=== PATIENT | female | born 1940 | race Caucasian/White ===

== ENCOUNTER 2022-04-12 15:15 | Emergency (ER) | payer OTHER ==
[2022-04-12 15:54] LABS: #Eosinphils 0.2 thou/uL (0.0-0.7); #Lymphocytes 1.5 thou/uL (1.20-3.40); #Monocytes 0.9 thou/uL (0.11-0.59); #Neutrophils 4.9 thou/uL (1.40-6.50); %Basophils 0.5 % (0.0-1.0); %Eosinophils 2.4 % (0.0-10.0); %Lymphocytes 19.7 % (21.0-51.0); %Monocytes 11.8 % (0.0-10.0); %Neutrophils 65.6 % (42.0-75.0); Hemoglobin 10.8 g/dL (12.0-16.0); Mean Corpuscular HGB CONC 32.2 g/dL (32.0-36.0); Mean Corpuscular Hemoglobin 29.1 pg (27.0-31.0); Mean Corpuscular Volume 90.4 fL (78.0-98.0); Mean Platelet Volume 8.8 fL (7.4-10.4); Platelet Count 216 thou/uL (130-400); RBC Distribution Width 12.9 % (11.5-14.5); Red Blood Cell (RBC) Count 3.72 mill/uL (4.20-5.40); White Blood Cell (WBC) Count 7.4 thou/uL (4.8-10.8)
[2022-04-12] MEDS ORDERED: Atropine Sulfate 1 mg/10 ml Syringe ONE (15:54)
[2022-04-12 16:25] LABS: ALT (SGPT) 16 U/L (8-55); AST (SGOT) 28 U/L (5-34); Albumin 4.1 g/dL (3.4-4.8); Alkaline Phosphatase 70 U/L (40-110); Anion Gap 18 mmol/L (10-20); BUN (Urea Nitrogen) 52 mg/dL (9.8-20.1); Bilirubin, Total 0.5 mg/dL (0.2-1.2); Calc. Creatinine Clearance 0 mL/min (70-130); Calcium 8.9 mg/dL (7.8-10.44); Carbon Dioxide 24 mmol/L (23-31); Chloride 98 mmol/L (98-107); Estimated GFR 19; Globulin 2.3 g/dL (2.4-3.5); Glucose 121 mg/dL (83-110); Potassium 4.1 mmol/L (3.5-5.1); Protein, Total 6.4 g/dL (5.8-8.1); Sodium 136 mmol/L (136-145)
== END 2022-04-12 17:55 | disposition short-term general hospital (02) ==
LOC: ERS 15:15
DX: R00.1 Bradycardia, unspecified (principal); I44.0 Atrioventricular block, first degree; I44.7 Left bundle-branch block, unspecified; I48.91 Unspecified atrial fibrillation; I11.0 Hypertensive heart disease with heart failure; I50.9 Heart failure, unspecified; E11.9 Type 2 diabetes mellitus without complications; E78.5 Hyperlipidemia, unspecified; Z79.01 Long term (current) use of anticoagulants; Z79.899 Other long term (current) drug therapy
CPT/HCPCS: 80053; 83880; 84484; 85025; 93005; 96374; 96375; 99285; J1610; 36415; J0461

== ENCOUNTER 2022-10-24 10:45 | Emergency (ER) | payer OTHER ==
[~2022-10-24 10:45] MED LIST: Iopamidol-370 76% 500 ML 1 ML ONE
[2022-10-24] MEDS ORDERED: Morphine 4 MG/ML VIAL ONE (11:29)
[2022-10-24] MEDS ORDERED: Ondansetron PF 4 MG/2 ML Vial ONE (11:29)
[2022-10-24 11:40] LABS: #Eosinphils 0.1 thou/uL (0.0-0.7); #Lymphocytes 1.2 thou/uL (1.20-3.40); #Monocytes 0.8 thou/uL (0.11-0.59); #Neutrophils 7.8 thou/uL (1.40-6.50); %Basophils 0.1 % (0.0-1.0); %Eosinophils 0.9 % (0.0-10.0); %Lymphocytes 12.5 % (21.0-51.0); %Monocytes 7.6 % (0.0-10.0); %Neutrophils 78.8 % (42.0-75.0); Hemoglobin 11.8 g/dL (12.0-16.0); Mean Corpuscular HGB CONC 32.7 g/dL (32.0-36.0); Mean Corpuscular Hemoglobin 29.9 pg (27.0-31.0); Mean Corpuscular Volume 91.5 fl (78.0-98.0); Platelet Count 271 10x3/uL (130-400); RBC Distribution Width 13.3 % (11.5-14.5); Red Blood Cell (RBC) Count 3.94 mill/uL (4.20-5.40); White Blood Cell (WBC) Count 9.8 10x3/uL (4.8-10.8)
[2022-10-24 12:01] LABS: ALT (SGPT) 22 U/L (8-55); AST (SGOT) 34 U/L (5-34); Albumin 4.2 g/dL (3.4-4.8); Alkaline Phosphatase 73 U/L (40-110); Anion Gap 15 mmol/L (10-20); BUN (Urea Nitrogen) 43 mg/dL (9.8-20.1); Bilirubin, Total 0.6 mg/dL (0.2-1.2); Calc. Creatinine Clearance 0 mL/min (70-130); Carbon Dioxide 26 mmol/L (23-31); Chloride 95 mmol/L (98-107); Estimated GFR 25; Globulin 2.3 g/dL (2.4-3.5); Glucose 109 mg/dL (83-110); Potassium 4.6 mmol/L (3.5-5.1); Protein, Total 6.5 g/dL (5.8-8.1); Sodium 131 mmol/L (136-145)
== END 2022-10-24 15:44 | disposition home or self-care (01) ==
LOC: ERS 10:45
DX: S09.90XA Unspecified injury of head, initial encounter (principal); M54.50 Low back pain, unspecified; I11.0 Hypertensive heart disease with heart failure; I50.9 Heart failure, unspecified; E78.5 Hyperlipidemia, unspecified; Z79.899 Other long term (current) drug therapy; W19.XXXA Unspecified fall, initial encounter
CPT/HCPCS: 36415; 70450; 71045; 72125; 74177; 80053; 84484; 85025; 93005; 96361; 96374; 96375; J2270; J2405; Q9967

== ENCOUNTER 2023-04-19 09:16 | Inpatient (IN) | payer OTHER ==
[2023-04-19 10:17] LABS: #Eosinphils 0.1 thou/uL (0.0-0.7); #Monocytes 0.7 thou/uL (0.11-0.59); #Neutrophils 3.8 thou/uL (1.40-6.50); %Basophils 0.3 % (0.0-1.0); %Eosinophils 2.2 % (0.0-10.0); %Lymphocytes 28.5 % (21.0-51.0); %Monocytes 10.3 % (0.0-10.0); %Neutrophils 58.4 % (42.0-75.0); Hematocrit 31.2 % (36.0-47.0); Hemoglobin 9.8 g/dL (12.0-16.0); Mean Corpuscular HGB CONC 31.4 g/dL (32.0-36.0); Mean Corpuscular Hemoglobin 27.9 pg (27.0-31.0); Mean Corpuscular Volume 88.9 fl (78.0-98.0); Platelet Count 193 10x3/uL (130-400); RBC Distribution Width 14.6 % (11.5-14.5); Red Blood Cell (RBC) Count 3.51 mill/uL (4.20-5.40); White Blood Cell (WBC) Count 6.5 10x3/uL (4.8-10.8)
[2023-04-19] MEDS ORDERED: Ondansetron PF 4 MG/2 ML Vial ONE ×2 (10:25→13:31)
[2023-04-19 10:45] LABS: ALT (SGPT) 14 U/L (8-55); AST (SGOT) 27 U/L (5-34); Albumin 3.6 g/dL (3.4-4.8); Alkaline Phosphatase 76 U/L (40-110); Anion Gap 14 mmol/L (10-20); BUN (Urea Nitrogen) 44 mg/dL (9.8-20.1); Bilirubin, Total 0.4 mg/dL (0.2-1.2); Calc. Creatinine Clearance 0 mL/min (70-130); Calcium 8.3 mg/dL (7.8-10.44); Carbon Dioxide 20 mmol/L (23-31); Estimated GFR 30; Glucose 87 mg/dL (83-110); Lipase 4 U/L (8-78); Potassium 4.1 mmol/L (3.5-5.1); Protein, Total 5.6 g/dL (5.8-8.1)
[2023-04-19 10:47] LABS: Chloride 106 mmol/L (98-107); Sodium 136 mmol/L (136-145)
[2023-04-19 10:49] LABS: Troponin I Less than 0.010 ng/mL (< 0.028)
[2023-04-19] MEDS ORDERED: cefTRIAXone (ROCEPHIN) 2 GM VIAL ONE (12:17)
[2023-04-19 12:33] LABS: Bilirubin Negative (Negative); Blood, Urine Negative (Negative); CAUTI Indications for Culture Alt mental st,lethar; Clarity Clear (Clear); Glucose, Urine (Dipstick) 200 mg/dL (Negative); Ketone, Urine Negative (Negative); Leukocyte 75 Leu/uL (Negative); Nitrite Negative (Negative); Protein, Urine (Dipstick) Negative (Neg-Trace); RBC/HPF 0-3 HPF (0-3); Specific Gravity, Urine 1.027 (1.002-1.036); Urobilinogen Normal mg/dL (Less than 2)
[2023-04-19 12:55] LABS: Bacteria/HPF 1+ HPF (None Seen)
[2023-04-19 12:56] LABS: Urine Culture Reflex No No
[2023-04-19] MEDS ORDERED: Azithromycin 500 MG VIAL ONE (13:31)
[2023-04-19] MEDS ORDERED: Iopamidol-370 76% 500 ML MDV (1 ML CHARGE) ONE (14:36)
[2023-04-19] MEDS: Sodium Chloride 0.9% 1,000 ML IV SCH ×2 (16:40→23:21)
[2023-04-19] MEDS: Dronedarone HCl 400 MG TAB PO SCH (18:30)
[2023-04-19 19:17] VITALS: BMI 36.3
[2023-04-19 19:52] LABS: SARS-CoV-2 NAA Rapid Test Not Detected (NotDetected)
[2023-04-19] MEDS: Temazepam 15 MG CAP PO PRN (21:31)
[2023-04-19] MEDS: Ezetimibe 10 MG TAB PO SCH (21:31)
[2023-04-19] MEDS: Acetaminophen 325 MG TAB PO PRN (21:31)
[2023-04-19] MEDS: Ondansetron PF 4 MG/2 ML Vial IVP PRN (21:32)
[2023-04-19] MEDS: clonazePAM 1 MG TAB PO PRN (22:05)
[2023-04-20] MEDS: Acetaminophen 325 MG TAB PO PRN ×3 (04:33→22:03)
[2023-04-20 04:34] LABS: #Monocytes 1.1 thou/uL (0.11-0.59); #Neutrophils 6.3 thou/uL (1.40-6.50); %Basophils 0.2 % (0.0-1.0); %Eosinophils 0.3 % (0.0-10.0); %Lymphocytes 14.3 % (21.0-51.0); %Monocytes 12.4 % (0.0-10.0); %Neutrophils 72.5 % (42.0-75.0); Hematocrit 33.6 % (36.0-47.0); Hemoglobin 10.1 g/dL (12.0-16.0); Mean Corpuscular HGB CONC 30.1 g/dL (32.0-36.0); Mean Corpuscular Hemoglobin 26.6 pg (27.0-31.0); Mean Corpuscular Volume 88.7 fl (78.0-98.0); Platelet Count 237 10x3/uL (130-400); RBC Distribution Width 14.8 % (11.5-14.5); Red Blood Cell (RBC) Count 3.79 mill/uL (4.20-5.40); White Blood Cell (WBC) Count 8.7 10x3/uL (4.8-10.8)
[2023-04-20 05:07] LABS: Anion Gap 14 mmol/L (10-20); BUN (Urea Nitrogen) 37 mg/dL (9.8-20.1); Calc. Creatinine Clearance 49 mL/min (70-130); Calcium 8.8 mg/dL (7.8-10.44); Carbon Dioxide 20 mmol/L (23-31); Cardiac Risk 3.6 (Less than 4.5); Chloride 109 mmol/L (98-107); Cholesterol 169 mg/dl (< 200 Desired); Estimated GFR 38; Glucose 98 mg/dL (83-110); HDL Cholesterol 47 mg/dL (>60 Neg Risk); Potassium 4.6 mmol/L (3.5-5.1); Sodium 138 mmol/L (136-145)
[2023-04-20 05:43] LABS: Triglycerides 169 mg/dL (Less than 150)
[2023-04-20 06:17] LABS: LDL Cholesterol, Calculated 88 mg/dL
[2023-04-20] MEDS: Clopidogrel Bisulfate 75 MG TAB PO SCH (09:38)
[2023-04-20] MEDS: Dronedarone HCl 400 MG TAB PO SCH ×2 (09:39→17:02)
[2023-04-20] MEDS: Sodium Chloride 0.9% 1,000 ML IV SCH (09:39)
[2023-04-20] MEDS ORDERED: Gabapentin 100 MG CAP PO SCH (11:00)
[2023-04-20] MEDS ORDERED: Rivaroxaban 10 MG TAB PO SCH (11:15)
[2023-04-20] MEDS: Ondansetron PF 4 MG/2 ML Vial IVP PRN (11:47)
[2023-04-20] MEDS: cefTRIAXone\\ROCEPHIN 2 GM in Sodium Chloride 0.9% 100 ML IVPB SCH (11:47)
[2023-04-20] MEDS: Azithromycin 500 MG in Sodium Chloride 0.9% 250 ML 250 ML IVPB SCH (15:23)
[2023-04-20] MEDS: Temazepam 15 MG CAP PO PRN (21:04)
[2023-04-20] MEDS: Gabapentin 100 MG CAP PO SCH (21:04)
[2023-04-20] MEDS: Ezetimibe 10 MG TAB PO SCH (21:05)
[2023-04-20] MEDS: Methocarbamol 500 MG TAB PO SCH (21:08)
[2023-04-20] MEDS: clonazePAM 1 MG TAB PO PRN (22:03)
[2023-04-21] MEDS: Acetaminophen 325 MG TAB PO PRN (03:59)
[2023-04-21 05:27] LABS: #Eosinphils 0.1 thou/uL (0.0-0.7); #Monocytes 0.8 thou/uL (0.11-0.59); #Neutrophils 6.7 thou/uL (1.40-6.50); %Basophils 0.2 % (0.0-1.0); %Eosinophils 1.6 % (0.0-10.0); %Lymphocytes 12.9 % (21.0-51.0); %Monocytes 9.2 % (0.0-10.0); %Neutrophils 75.8 % (42.0-75.0); Hematocrit 31.9 % (36.0-47.0); Hemoglobin 9.7 g/dL (12.0-16.0); Mean Corpuscular HGB CONC 30.4 g/dL (32.0-36.0); Mean Corpuscular Hemoglobin 27.6 pg (27.0-31.0); Mean Corpuscular Volume 90.9 fl (78.0-98.0); Mean Platelet Volume 10.8 fL (7.4-10.4); Platelet Count 202 10x3/uL (130-400); RBC Distribution Width 14.8 % (11.5-14.5); Red Blood Cell (RBC) Count 3.51 mill/uL (4.20-5.40); White Blood Cell (WBC) Count 8.8 10x3/uL (4.8-10.8)
[2023-04-21 05:49] LABS: Anion Gap 13 mmol/L (10-20); BUN (Urea Nitrogen) 28 mg/dL (9.8-20.1); Calc. Creatinine Clearance 58 mL/min (70-130); Calcium 8.7 mg/dL (7.8-10.44); Carbon Dioxide 20 mmol/L (23-31); Chloride 111 mmol/L (98-107); Estimated GFR 46; Glucose 96 mg/dL (83-110); Potassium 4.4 mmol/L (3.5-5.1); Sodium 140 mmol/L (136-145)
[2023-04-21] MEDS: Dronedarone HCl 400 MG TAB PO SCH ×2 (08:57→16:17)
[2023-04-21] MEDS: Rivaroxaban 10 MG TAB PO SCH (08:57)
[2023-04-21] MEDS: Gabapentin 100 MG CAP PO SCH ×2 (08:57→21:27)
[2023-04-21] MEDS: Clopidogrel Bisulfate 75 MG TAB PO SCH (08:57)
[2023-04-21] MEDS: cefTRIAXone\\ROCEPHIN 2 GM in Sodium Chloride 0.9% 100 ML IVPB SCH (10:58)
[2023-04-21] MEDS: Azithromycin 500 MG in Sodium Chloride 0.9% 250 ML 250 ML IVPB SCH (11:53)
[2023-04-21] MEDS ORDERED: Temazepam 15 MG CAP PO SCH (13:30)
[2023-04-21] MEDS ORDERED: Losartan 25 MG TAB PO SCH (15:00)
[2023-04-21] MEDS ORDERED: ALPRAZolam 0.25 MG TAB PO PRN (15:12)
[2023-04-21] MEDS ORDERED: Milk Of Magnesia 30 ML UDCUP PO PRN (20:25)
[2023-04-21] MEDS: Methocarbamol 500 MG TAB PO SCH (21:26)
[2023-04-21] MEDS: Ezetimibe 10 MG TAB PO SCH (21:27)
[2023-04-21] MEDS: Temazepam 15 MG CAP PO PRN (22:11)
[2023-04-21] MEDS: clonazePAM 1 MG TAB PO PRN (22:13)
[2023-04-22] MEDS: Acetaminophen 325 MG TAB PO PRN ×4 (04:53→21:55)
[2023-04-22 05:10] LABS: #Eosinphils 0.1 thou/uL (0.0-0.7); #Monocytes 0.9 thou/uL (0.11-0.59); #Neutrophils 5.9 thou/uL (1.40-6.50); %Basophils 0.2 % (0.0-1.0); %Eosinophils 1.7 % (0.0-10.0); %Lymphocytes 16.4 % (21.0-51.0); %Monocytes 10.5 % (0.0-10.0); %Neutrophils 70.8 % (42.0-75.0); Hematocrit 33.3 % (36.0-47.0); Hemoglobin 10.3 g/dL (12.0-16.0); Mean Corpuscular HGB CONC 30.9 g/dL (32.0-36.0); Mean Corpuscular Hemoglobin 27.2 pg (27.0-31.0); Mean Platelet Volume 10.8 fL (7.4-10.4); Platelet Count 234 10x3/uL (130-400); RBC Distribution Width 14.6 % (11.5-14.5); Red Blood Cell (RBC) Count 3.79 mill/uL (4.20-5.40); White Blood Cell (WBC) Count 8.4 10x3/uL (4.8-10.8)
[2023-04-22 05:22] LABS: Mean Corpuscular Volume 87.9 fl (78.0-98.0)
[2023-04-22 05:40] LABS: Anion Gap 11 mmol/L (10-20); BUN (Urea Nitrogen) 21 mg/dL (9.8-20.1); Calc. Creatinine Clearance 63 mL/min (70-130); Carbon Dioxide 21 mmol/L (23-31); Chloride 108 mmol/L (98-107); Potassium 4.3 mmol/L (3.5-5.1); Sodium 136 mmol/L (136-145)
[2023-04-22 05:41] LABS: Calcium 9.2 mg/dL (7.8-10.44); Estimated GFR 51; Glucose 83 mg/dL (83-110); Magnesium 1.9 mg/dL (1.6-2.6)
[2023-04-22] MEDS ORDERED: DAPAGLIFLOZIN 10 MG PO SCH ×2 (09:00)
[2023-04-22] MEDS ORDERED: Empagliflozin 25 MG TAB PO SCH (09:00)
[2023-04-22] MEDS: Dronedarone HCl 400 MG TAB PO SCH ×2 (09:20→17:56)
[2023-04-22] MEDS: Gabapentin 100 MG CAP PO SCH ×2 (09:20→21:50)
[2023-04-22] MEDS: Clopidogrel Bisulfate 75 MG TAB PO SCH (09:20)
[2023-04-22] MEDS: Losartan 25 MG TAB PO SCH (09:21)
[2023-04-22] MEDS: Rivaroxaban 10 MG TAB PO SCH (09:21)
[2023-04-22] MEDS: DAPAGLIFLOZIN 10 MG PO SCH (09:26)
[2023-04-22] MEDS: TADALAFIL 5 MG TABLET PO SCH (09:27)
[2023-04-22] MEDS: cefTRIAXone\\ROCEPHIN 2 GM in Sodium Chloride 0.9% 100 ML IVPB SCH (12:43)
[2023-04-22] MEDS: Azithromycin 500 MG in Sodium Chloride 0.9% 250 ML 250 ML IVPB SCH (14:12)
[2023-04-22] MEDS ORDERED: Temazepam 15 MG CAP PO SCH (21:00)
[2023-04-22] MEDS: Temazepam 15 MG CAP PO PRN (21:50)
[2023-04-22] MEDS: Ezetimibe 10 MG TAB PO SCH (21:51)
[2023-04-22] MEDS: Methocarbamol 500 MG TAB PO SCH (21:51)
[2023-04-22] MEDS: clonazePAM 1 MG TAB PO PRN (22:26)
[2023-04-23 09:26] LABS: #Eosinphils 0.1 thou/uL (0.0-0.7); #Monocytes 0.9 thou/uL (0.11-0.59); #Neutrophils 6.1 thou/uL (1.40-6.50); %Basophils 0.2 % (0.0-1.0); %Eosinophils 1.2 % (0.0-10.0); %Lymphocytes 13.8 % (21.0-51.0); %Monocytes 10.5 % (0.0-10.0); %Neutrophils 74.1 % (42.0-75.0); Hematocrit 33.7 % (36.0-47.0); Hemoglobin 10.3 g/dL (12.0-16.0); Mean Corpuscular HGB CONC 30.6 g/dL (32.0-36.0); Mean Corpuscular Hemoglobin 26.8 pg (27.0-31.0); Mean Corpuscular Volume 87.5 fl (78.0-98.0); Mean Platelet Volume 10.9 fL (7.4-10.4); Platelet Count 225 10x3/uL (130-400); RBC Distribution Width 14.5 % (11.5-14.5); Red Blood Cell (RBC) Count 3.85 mill/uL (4.20-5.40); White Blood Cell (WBC) Count 8.2 10x3/uL (4.8-10.8)
[2023-04-23] MEDS: Acetaminophen 325 MG TAB PO PRN ×3 (09:34→22:18)
[2023-04-23] MEDS: Gabapentin 100 MG CAP PO SCH ×2 (09:35→20:26)
[2023-04-23] MEDS: Rivaroxaban 10 MG TAB PO SCH (09:36)
[2023-04-23] MEDS: Dronedarone HCl 400 MG TAB PO SCH ×2 (09:36→17:26)
[2023-04-23] MEDS: Clopidogrel Bisulfate 75 MG TAB PO SCH (09:36)
[2023-04-23] MEDS: Losartan 25 MG TAB PO SCH (09:36)
[2023-04-23 09:40] LABS: Anion Gap 11 mmol/L (10-20); BUN (Urea Nitrogen) 18 mg/dL (9.8-20.1); Calc. Creatinine Clearance 65 mL/min (70-130); Calcium 9.1 mg/dL (7.8-10.44); Carbon Dioxide 19 mmol/L (23-31); Chloride 107 mmol/L (98-107); Estimated GFR 54; Glucose 84 mg/dL (83-110); Potassium 4.3 mmol/L (3.5-5.1); Sodium 133 mmol/L (136-145)
[2023-04-23] MEDS: DAPAGLIFLOZIN 10 MG PO SCH (09:45)
[2023-04-23] MEDS: TADALAFIL 5 MG TABLET PO SCH (09:46)
[2023-04-23] MEDS: cefTRIAXone\\ROCEPHIN 2 GM in Sodium Chloride 0.9% 100 ML IVPB SCH (13:05)
[2023-04-23] MEDS: Azithromycin 500 MG in Sodium Chloride 0.9% 250 ML 250 ML IVPB SCH (15:09)
[2023-04-23] MEDS: Methocarbamol 500 MG TAB PO SCH (20:25)
[2023-04-23] MEDS: Ezetimibe 10 MG TAB PO SCH (20:27)
[2023-04-23] MEDS: clonazePAM 1 MG TAB PO PRN (20:28)
[2023-04-23] MEDS: Temazepam 15 MG CAP PO PRN (22:18)
[2023-04-24 05:52] LABS: #Eosinphils 0.2 thou/uL (0.0-0.7); #Monocytes 0.9 thou/uL (0.11-0.59); #Neutrophils 4.4 thou/uL (1.40-6.50); %Basophils 0.3 % (0.0-1.0); %Lymphocytes 18.1 % (21.0-51.0); %Monocytes 13.6 % (0.0-10.0); %Neutrophils 64.6 % (42.0-75.0); Hematocrit 30.4 % (36.0-47.0); Hemoglobin 9.6 g/dL (12.0-16.0); Mean Corpuscular HGB CONC 31.6 g/dL (32.0-36.0); Mean Corpuscular Hemoglobin 27.1 pg (27.0-31.0); Mean Corpuscular Volume 85.9 fl (78.0-98.0); Mean Platelet Volume 10.7 fL (7.4-10.4); Platelet Count 211 10x3/uL (130-400); RBC Distribution Width 14.6 % (11.5-14.5); Red Blood Cell (RBC) Count 3.54 mill/uL (4.20-5.40); White Blood Cell (WBC) Count 6.7 10x3/uL (4.8-10.8)
[2023-04-24 06:18] LABS: Anion Gap 13 mmol/L (10-20); BUN (Urea Nitrogen) 22 mg/dL (9.8-20.1); Calc. Creatinine Clearance 60 mL/min (70-130); Carbon Dioxide 21 mmol/L (23-31); Chloride 105 mmol/L (98-107); Estimated GFR 48; Glucose 87 mg/dL (83-110); Potassium 4.2 mmol/L (3.5-5.1); Sodium 135 mmol/L (136-145)
[2023-04-24] MEDS: Acetaminophen 325 MG TAB PO PRN ×3 (06:27→20:53)
[2023-04-24] MEDS: Losartan 25 MG TAB PO SCH (10:11)
[2023-04-24] MEDS: TADALAFIL 5 MG TABLET PO SCH (10:12)
[2023-04-24] MEDS: DAPAGLIFLOZIN 10 MG PO SCH (10:13)
[2023-04-24] MEDS: Dronedarone HCl 400 MG TAB PO SCH ×2 (10:14→18:41)
[2023-04-24] MEDS: Rivaroxaban 10 MG TAB PO SCH (10:15)
[2023-04-24] MEDS: Gabapentin 100 MG CAP PO SCH ×2 (10:15→20:51)
[2023-04-24] MEDS: Clopidogrel Bisulfate 75 MG TAB PO SCH (10:16)
[2023-04-24] MEDS: cefTRIAXone\\ROCEPHIN 2 GM in Sodium Chloride 0.9% 100 ML IVPB SCH (12:00)
[2023-04-24] MEDS: Azithromycin 500 MG in Sodium Chloride 0.9% 250 ML 250 ML IVPB SCH (14:29)
[2023-04-24] MEDS: Methocarbamol 500 MG TAB PO SCH (20:51)
[2023-04-24] MEDS: Temazepam 15 MG CAP PO PRN (20:52)
[2023-04-24] MEDS: Ezetimibe 10 MG TAB PO SCH (20:53)
[2023-04-24] MEDS: clonazePAM 1 MG TAB PO PRN (21:52)
[2023-04-25] MEDS: Acetaminophen 325 MG TAB PO PRN ×3 (03:56→18:36)
[2023-04-25 06:27] LABS: #Eosinphils 0.2 thou/uL (0.0-0.7); #Neutrophils 5.4 thou/uL (1.40-6.50); %Basophils 0.3 % (0.0-1.0); %Eosinophils 2.9 % (0.0-10.0); %Lymphocytes 11.6 % (21.0-51.0); %Monocytes 13.5 % (0.0-10.0); %Neutrophils 71.2 % (42.0-75.0); Hematocrit 28.8 % (36.0-47.0); Mean Corpuscular HGB CONC 31.3 g/dL (32.0-36.0); Mean Corpuscular Hemoglobin 27.1 pg (27.0-31.0); Mean Corpuscular Volume 86.7 fl (78.0-98.0); Mean Platelet Volume 10.7 fL (7.4-10.4); Platelet Count 233 10x3/uL (130-400); RBC Distribution Width 14.5 % (11.5-14.5); Red Blood Cell (RBC) Count 3.32 mill/uL (4.20-5.40); White Blood Cell (WBC) Count 7.6 10x3/uL (4.8-10.8)
[2023-04-25 06:49] LABS: Anion Gap 16 mmol/L (10-20); BUN (Urea Nitrogen) 22 mg/dL (9.8-20.1); Calc. Creatinine Clearance 64 mL/min (70-130); Calcium 8.8 mg/dL (7.8-10.44); Carbon Dioxide 19 mmol/L (23-31); Chloride 105 mmol/L (98-107); Estimated GFR 52; Glucose 92 mg/dL (83-110); Potassium 4.3 mmol/L (3.5-5.1); Sodium 136 mmol/L (136-145)
[2023-04-25] MEDS: DAPAGLIFLOZIN 10 MG PO SCH (09:13)
[2023-04-25] MEDS: TADALAFIL 5 MG TABLET PO SCH (09:14)
[2023-04-25] MEDS: Gabapentin 100 MG CAP PO SCH ×2 (09:17→20:58)
[2023-04-25] MEDS: Clopidogrel Bisulfate 75 MG TAB PO SCH (09:19)
[2023-04-25] MEDS: Dronedarone HCl 400 MG TAB PO SCH ×2 (09:19→18:21)
[2023-04-25] MEDS: Losartan 25 MG TAB PO SCH (09:19)
[2023-04-25] MEDS: Rivaroxaban 10 MG TAB PO SCH (09:19)
[2023-04-25] MEDS: cefTRIAXone\\ROCEPHIN 2 GM in Sodium Chloride 0.9% 100 ML IVPB SCH (12:38)
[2023-04-25] MEDS: Azithromycin 500 MG in Sodium Chloride 0.9% 250 ML 250 ML IVPB SCH (13:55)
[2023-04-25] MEDS ORDERED: Temazepam 15 MG CAP PO PRN (19:14)
[2023-04-25] MEDS: Methocarbamol 500 MG TAB PO SCH (20:57)
[2023-04-25] MEDS: Ezetimibe 10 MG TAB PO SCH (20:57)
[2023-04-25] MEDS: clonazePAM 1 MG TAB PO PRN (21:51)
[2023-04-26] MEDS: Acetaminophen 325 MG TAB PO PRN ×2 (04:11→11:25)
[2023-04-26] MEDS: Dronedarone HCl 400 MG TAB PO SCH (08:29)
[2023-04-26] MEDS: Rivaroxaban 10 MG TAB PO SCH (08:29)
[2023-04-26] MEDS: Clopidogrel Bisulfate 75 MG TAB PO SCH (08:29)
[2023-04-26] MEDS: Losartan 25 MG TAB PO SCH (08:30)
[2023-04-26] MEDS: Gabapentin 100 MG CAP PO SCH (08:31)
[2023-04-26] MEDS: TADALAFIL 5 MG TABLET PO SCH (08:32)
[2023-04-26] MEDS: DAPAGLIFLOZIN 10 MG PO SCH (08:33)
[2023-04-26] MEDS ORDERED: Amlodipine 5 MG TAB PO SCH (09:00)
[2023-04-26] MEDS ORDERED: Azithromycin 250 MG TAB PO SCH (09:00)
[2023-04-26] MEDS ORDERED: Azithromycin 200 MG/5 ML Oral Suspension PO SCH (10:17)
[2023-04-26] MEDS ORDERED: cefTRIAXone\\ROCEPHIN 2 GM in Sodium Chloride 0.9% 100 ML IVPB SCH (10:30)
[2023-04-26 12:19] VITALS: BP 127/54; TEMP 97.6
== END 2023-04-26 13:33 | DRG 312 ==
LOC: ERS 09:16 → ERHOLD 12:54 → 2SE 16:04 → OBSVTOIN 04-20 11:09
PROVIDERS: ADMIT Family Medicine; ATTEND Internal Medicine
DX: R55 Syncope and collapse (principal); J18.9 Pneumonia, unspecified organism; N17.9 Acute kidney failure, unspecified; I13.0 Hypertensive heart and chronic kidney disease with heart failure and stage 1 through stage 4 chronic kidney disease, or unspecified chronic kidney disease; I50.32 Chronic diastolic (congestive) heart failure; Z20.822 Contact with and (suspected) exposure to COVID-19; I27.20 Pulmonary hypertension, unspecified; I65.21 Occlusion and stenosis of right carotid artery; N18.30 Chronic kidney disease, stage 3 unspecified; I48.0 Paroxysmal atrial fibrillation; I08.1 Rheumatic disorders of both mitral and tricuspid valves; G47.00 Insomnia, unspecified; G89.29 Other chronic pain; I49.5 Sick sinus syndrome; I25.10 Atherosclerotic heart disease of native coronary artery without angina pectoris; M54.9 Dorsalgia, unspecified; K21.9 Gastro-esophageal reflux disease without esophagitis; E78.5 Hyperlipidemia, unspecified; D64.9 Anemia, unspecified; R09.02 Hypoxemia; Z79.899 Other long term (current) drug therapy; Z79.02 Long term (current) use of antithrombotics/antiplatelets; Z88.8 Allergy status to other drugs, medicaments and biological substances; Z79.01 Long term (current) use of anticoagulants; Z95.0 Presence of cardiac pacemaker; Z95.2 Presence of prosthetic heart valve; Z90.49 Acquired absence of other specified parts of digestive tract; Z90.710 Acquired absence of both cervix and uterus; Z98.51 Tubal ligation status; Z95.5 Presence of coronary angioplasty implant and graft
CPT/HCPCS: 36415; 70450; 71275; 74174; 80048; 80053; 80061; 81001; 83605; 83690; 83735; 83880; 84484; 85025; 87040; 93005; 93306; 93880; 96361; 96365; 96367; 96375; 96376; G0378; J0456; J0696; J2405; J3490; J7050; Q9967; U0002

== ENCOUNTER 2024-02-20 14:27 | Inpatient (IN) | payer OTHER ==
[2024-02-20 15:10] LABS: #Basophils Less than 0.03 10x3/uL (0.0-0.2); %Basophils 0.3 % (0.0-1.0); %Eosinophils 0.4 % (0.0-10.0); %Lymphocytes 14.7 % (21.0-51.0); %Monocytes 8.1 % (0.0-10.0); %Neutrophils 76.1 % (42.0-75.0); Hematocrit 39.4 % (36.0-47.0); Hemoglobin 11.8 g/dL (12.0-16.0); Mean Corpuscular HGB CONC 29.9 g/dL (32.0-36.0); Mean Corpuscular Hemoglobin 25.2 pg (27.0-31.0); Mean Platelet Volume 10.6 fL (7.4-10.4); Platelet Count 234 10x3/uL (130-400); RBC Distribution Width 15.7 % (11.5-14.5); Red Blood Cell (RBC) Count 4.69 mill/uL (4.20-5.40)
[2024-02-20 15:30] LABS: ALT (SGPT) 12 U/L (8-55); AST (SGOT) 26 U/L (5-34); Albumin 4.1 g/dL (3.4-4.8); Alkaline Phosphatase 85 U/L (40-110); Anion Gap 15 mmol/L (10-20); BUN (Urea Nitrogen) 28 mg/dL (9.8-20.1); Bilirubin, Total 0.5 mg/dL (0.2-1.2); Calc. Creatinine Clearance 0 mL/min (70-130); Calcium 9.5 mg/dL (7.8-10.44); Carbon Dioxide 17 mmol/L (23-31); Chloride 107 mmol/L (98-107); Estimated GFR 37; Globulin 3.2 g/dL (2.4-3.5); Glucose 104 mg/dL (83-110); Lipase 13 U/L (8-78); Potassium 4.3 mmol/L (3.5-5.1); Protein, Total 7.3 g/dL (5.8-8.1); Sodium 135 mmol/L (136-145)
[2024-02-20] MEDS ORDERED: Iopamidol-370 76% 500 ML MDV (1 ML CHARGE) ONE (15:42)
[2024-02-20 16:07] LABS: Troponin I Less than 0.010 ng/mL (< 0.028)
[2024-02-20] MEDS ORDERED: Morphine 4 MG/ML VIAL ONE (16:56)
[2024-02-20] MEDS ORDERED: Ondansetron PF 4 MG/2 ML Vial ONE (16:56)
[2024-02-20] MEDS ORDERED: Benzocaine 20% Spray 60 ML CAN ONE (17:54)
[2024-02-20] MEDS ORDERED: Lidocaine 2% PF 100 mg/5 ml Syringe ONE (18:03)
[2024-02-20] MEDS ORDERED: Lidocaine 4% Topical Sol 50 ML BOT ONE (18:04)
[2024-02-20] MEDS ORDERED: Lidocaine 2% 6 ML (Jelly) SYR ONE (18:04)
[2024-02-20] MEDS ORDERED: Ondansetron ODT 4 MG TAB PO PRN (18:10)
[2024-02-20] MEDS ORDERED: Acetaminophen 650 MG Suppository PR PRN (18:10)
[2024-02-20] MEDS ORDERED: Acetaminophen 325 MG TAB PO PRN (18:10)
[2024-02-20] MEDS ORDERED: Midazolam HCl 2 mg/2 ml Vial ONE (18:19)
[2024-02-20] MEDS: Dextrose 5%-Lactated Ringers 1,000 ML IV SCH (20:14)
[2024-02-20] MEDS ORDERED: Ezetimibe 10 MG TAB PO SCH (21:00)
[2024-02-20] MEDS ORDERED: Famotidine 20 MG TAB PO SCH (21:00)
[2024-02-20] MEDS ORDERED: Senokot S 8.6-50 MG TAB PO PRN (21:15)
[2024-02-20] MEDS: Losartan 25 MG TAB PO SCH (21:44)
[2024-02-20] MEDS: Dronedarone HCl 400 MG TAB PO SCH (21:44)
[2024-02-20] MEDS: Temazepam 15 MG CAP PO PRN (21:44)
[2024-02-20] MEDS: Famotidine/PF 20 mg/2ml Vial SLOW IVP SCH (21:44)
[2024-02-21] MEDS: Ondansetron PF 4 MG/2 ML Vial IVP PRN (02:21)
[2024-02-21] MEDS: Morphine 4 MG/ML VIAL SLOW IVP PRN (02:21)
[2024-02-21] MEDS ORDERED: MD-Gastroview 120 ML BOT ONE (06:30)
[2024-02-21 07:02] LABS: Anion Gap 15 mmol/L (10-20); BUN (Urea Nitrogen) 21 mg/dL (9.8-20.1); Calc. Creatinine Clearance 64 mL/min (70-130); Carbon Dioxide 18 mmol/L (23-31); Chloride 104 mmol/L (98-107); Estimated GFR 59; Glucose 123 mg/dL (83-110); Potassium 4.3 mmol/L (3.5-5.1); Sodium 133 mmol/L (136-145)
[2024-02-21 07:33] LABS: #Basophils Less than 0.03 10x3/uL (0.0-0.2); #Eosinphils Less than 0.03 10x3/uL (0.0-0.7); %Basophils 0.1 % (0.0-1.0); %Eosinophils 0.1 % (0.0-10.0); %Lymphocytes 11.3 % (21.0-51.0); %Monocytes 8.3 % (0.0-10.0); Hematocrit 39.2 % (36.0-47.0); Hemoglobin 11.9 g/dL (12.0-16.0); Mean Corpuscular HGB CONC 30.4 g/dL (32.0-36.0); Mean Corpuscular Hemoglobin 25.5 pg (27.0-31.0); Mean Corpuscular Volume 84.1 fL (78.0-98.0); Mean Platelet Volume 10.9 fL (7.4-10.4); Platelet Count 249 10x3/uL (130-400); RBC Distribution Width 15.8 % (11.5-14.5); Red Blood Cell (RBC) Count 4.66 mill/uL (4.20-5.40)
[2024-02-21] MEDS ORDERED: Rivaroxaban 10 MG TAB PO SCH (09:00)
[2024-02-21] MEDS ORDERED: TADALAFIL 5 MG PO SCH (09:00)
[2024-02-21] MEDS ORDERED: Empagliflozin 25 MG TAB PO SCH (09:00)
[2024-02-21] MEDS ORDERED: Alogliptin 25 MG TAB PO SCH (09:00)
[2024-02-21] MEDS ORDERED: Furosemide 20 MG TAB PO SCH (09:00)
[2024-02-21] MEDS ORDERED: Milk Of Magnesia 30 ML UDCUP PO PRN (09:07)
[2024-02-21] MEDS ORDERED: Nitroglycerin 4.9 GM Bottle SL PRN ×2 (09:07→09:11)
[2024-02-21] MEDS ORDERED: fentaNYL PF 100 MCG/2 ML SYRINGE ONE ×3 (16:21→19:25)
[2024-02-21] MEDS ORDERED: PROPOFOL 20 ML ONE (16:21)
[2024-02-21] MEDS ORDERED: Lidocaine 2% PF 5 ML VIAL ONE ×2 (16:21→17:35)
[2024-02-21] MEDS ORDERED: Rocuronium Bromide 10 MG/ML (10ML VIAL) ONE (16:22)
[2024-02-21] MEDS ORDERED: Phenylephrine 10 MG/ML VIAL ONE (16:23)
[2024-02-21] MEDS ORDERED: Sodium Chloride 0.9% 250 ML 750 ML ONE (16:23)
[2024-02-21] MEDS ORDERED: EPINEPHrine 1 MG/ML VIAL ONE (16:26)
[2024-02-21] MEDS ORDERED: Bupivacaine PF 0.5% 30 ML VIAL ONE (16:26)
[2024-02-21] MEDS ORDERED: cefOXitin 2 GM VIAL ONE (16:58)
[2024-02-21] MEDS ORDERED: OMEPRAZOLE 20 MG PO SCH (17:00)
[2024-02-21] MEDS ORDERED: Pantoprazole DR 40 MG TAB PO SCH (17:00)
[2024-02-21] MEDS ORDERED: Midazolam HCl 2 mg/2 ml Vial ONE (17:05)
[2024-02-21] MEDS ORDERED: Etomidate 40 MG (20 mL) VIAL ONE (17:05)
[2024-02-21] MEDS ORDERED: NOREPINEPHRINE 8 MG/250 ML-D5W 250 ML ONE (17:11)
[2024-02-21] MEDS ORDERED: Dexamethasone 20 MG/5 ML VIAL ONE (17:27)
[2024-02-21] MEDS ORDERED: Vasopressin 20 UNITS/ML VIAL ONE (17:33)
[2024-02-21] MEDS ORDERED: SUGAMMADEX SODIUM 200 MG/2 ML VIAL ONE (18:49)
[2024-02-21] MEDS ORDERED: diphenhydrAMINE 25 MG CAP PO PRN (18:52)
[2024-02-21] MEDS ORDERED: diphenhydrAMINE 50 MG/ML VIAL IM PRN (18:52)
[2024-02-21] MEDS ORDERED: Ondansetron HCl/PF 4 MG/2 ML Vial IVP PRN (18:52)
[2024-02-21] MEDS ORDERED: Promethazine HCl 25 MG/ML VIAL IM PRN ×2 (18:52)
[2024-02-21] MEDS ORDERED: diphenhydrAMINE 50 MG/ML VIAL IVP PRN (18:52)
[2024-02-21] MEDS ORDERED: Naloxone HCl 0.4 mg/ml Vial IV PRN (18:52)
[2024-02-21] MEDS ORDERED: Communication Order-Pharmacy FS SCH (19:00)
[2024-02-21] MEDS ORDERED: Promethazine HCl 25 MG/ML VIAL ONE (19:08)
[2024-02-21] MEDS ORDERED: fentaNYL 50 mcg/mL 1 mL Vial ONE (19:16)
[2024-02-21] MEDS ORDERED: Tadalafil [Tadalafil] 5 MG Tablet PO SCH (19:30)
[2024-02-21] MEDS ORDERED: clonazePAM 0.5 MG TAB PO SCH (21:00)
[2024-02-21] MEDS ORDERED: Gabapentin 100 MG CAP PO SCH (21:00)
[2024-02-21] MEDS ORDERED: Gabapentin 300 MG CAP PO SCH (21:00)
[2024-02-21] MEDS: NS 0.9% w/ 20 MEQ KCL 1,000 ML/1,000 ML BAG IV SCH (22:28)
[2024-02-21] MEDS: Ketorolac Tromethamine 30 MG (1 mL) VIAL IVP PRN (22:30)
[2024-02-21] MEDS: Enoxaparin 40 MG (0.4 mL) SYRINGE SC SCH (22:30)
[2024-02-22 06:59] LABS: #Basophils Less than 0.03 10x3/uL (0.0-0.2); #Eosinphils Less than 0.03 10x3/uL (0.0-0.7); %Basophils 0.1 % (0.0-1.0); %Lymphocytes 6.6 % (21.0-51.0); %Monocytes 11.2 % (0.0-10.0); %Neutrophils 81.9 % (42.0-75.0); Hematocrit 39.2 % (36.0-47.0); Hemoglobin 11.9 g/dL (12.0-16.0); Mean Corpuscular HGB CONC 30.4 g/dL (32.0-36.0); Mean Corpuscular Hemoglobin 25.9 pg (27.0-31.0); Mean Corpuscular Volume 85.4 fL (78.0-98.0); Platelet Count 256 10x3/uL (130-400); RBC Distribution Width 16.2 % (11.5-14.5); Red Blood Cell (RBC) Count 4.59 mill/uL (4.20-5.40)
[2024-02-22 07:53] LABS: ALT (SGPT) 11 U/L (8-55); AST (SGOT) 25 U/L (5-34); Alkaline Phosphatase 60 U/L (40-110); Anion Gap 13 mmol/L (10-20); BUN (Urea Nitrogen) 23 mg/dL (9.8-20.1); Bilirubin, Total 0.5 mg/dL (0.2-1.2); Calc. Creatinine Clearance 54 mL/min (70-130); Calcium 8.6 mg/dL (7.8-10.44); Carbon Dioxide 21 mmol/L (23-31); Chloride 111 mmol/L (98-107); Estimated GFR 49; Globulin 2.9 g/dL (2.4-3.5); Glucose 127 mg/dL (83-110); Potassium 4.2 mmol/L (3.5-5.1); Protein, Total 5.9 g/dL (5.8-8.1); Sodium 141 mmol/L (136-145)
[2024-02-22] MEDS ORDERED: Clopidogrel Bisulfate 75 MG TAB PO SCH (09:00)
[2024-02-22] MEDS: Pantoprazole 40 MG VIAL IVP SCH (10:03)
[2024-02-22] MEDS ORDERED: Benzocaine/Menthol 1 LOZ LOZ PO PRN (11:31)
[2024-02-22] MEDS: Lactated Ringer's 1,000 ML IV SCH (17:09)
[2024-02-23] MEDS: Amlodipine 10 MG TAB PO SCH (08:42)
[2024-02-23 10:45] LABS: #Basophils Less than 0.03 10x3/uL (0.0-0.2); #Eosinphils Less than 0.03 10x3/uL (0.0-0.7); %Basophils 0.1 % (0.0-1.0); %Eosinophils 0.2 % (0.0-10.0); %Lymphocytes 9.3 % (21.0-51.0); %Monocytes 9.6 % (0.0-10.0); %Neutrophils 79.5 % (42.0-75.0); Hematocrit 37.8 % (36.0-47.0); Hemoglobin 11.4 g/dL (12.0-16.0); Mean Corpuscular HGB CONC 30.2 g/dL (32.0-36.0); Mean Corpuscular Hemoglobin 26.1 pg (27.0-31.0); Mean Corpuscular Volume 86.7 fL (78.0-98.0); Mean Platelet Volume 10.7 fL (7.4-10.4); Platelet Count 220 10x3/uL (130-400); RBC Distribution Width 16.4 % (11.5-14.5); Red Blood Cell (RBC) Count 4.36 mill/uL (4.20-5.40)
[2024-02-23] MEDS ORDERED: Lactated Ringer's 1,000 ML IV SCH (11:00)
[2024-02-23 11:12] LABS: Anion Gap 18 mmol/L (10-20); BUN (Urea Nitrogen) 30 mg/dL (9.8-20.1); Calc. Creatinine Clearance 63 mL/min (70-130); Carbon Dioxide 19 mmol/L (23-31); Chloride 110 mmol/L (98-107); Potassium 4.4 mmol/L (3.5-5.1); Sodium 143 mmol/L (136-145)
[2024-02-23 11:13] LABS: Calcium 9.4 mg/dL (7.8-10.44); Estimated GFR 58; Glucose 95 mg/dL (83-110)
[2024-02-23] MEDS: Sodium Chloride 0.9% 1,000 ML IV SCH (14:25)
[2024-02-23] MEDS: Acetaminophen 500 MG TAB PO SCH (14:25)
[2024-02-23] MEDS: Furosemide 40 MG (4 mL) VIAL SLOW IVP SCH (14:26)
[2024-02-23] MEDS: FENTANYL 500 MCG/10 ML VIAL 2,000 MCG in Sodium Chloride 0.9% 60 ML IV PRN (18:28)
[2024-02-24 06:34] LABS: #Basophils Less than 0.03 10x3/uL (0.0-0.2); %Basophils 0.2 % (0.0-1.0); %Eosinophils 0.4 % (0.0-10.0); %Monocytes 9.6 % (0.0-10.0); %Neutrophils 80.2 % (42.0-75.0); Hemoglobin 10.5 g/dL (12.0-16.0); Mean Corpuscular Hemoglobin 25.3 pg (27.0-31.0); Mean Corpuscular Volume 84.3 fL (78.0-98.0); Mean Platelet Volume 10.7 fL (7.4-10.4); Platelet Count 213 10x3/uL (130-400); RBC Distribution Width 16.5 % (11.5-14.5); Red Blood Cell (RBC) Count 4.15 mill/uL (4.20-5.40)
[2024-02-24 07:28] LABS: Anion Gap 19 mmol/L (10-20); BUN (Urea Nitrogen) 32 mg/dL (9.8-20.1); Calc. Creatinine Clearance 70 mL/min (70-130); Calcium 9.3 mg/dL (7.8-10.44); Carbon Dioxide 21 mmol/L (23-31); Chloride 109 mmol/L (98-107); Estimated GFR 66; Glucose 89 mg/dL (83-110); Sodium 145 mmol/L (136-145)
[2024-02-24] MEDS: Amlodipine 10 MG TAB PO SCH (09:14)
[2024-02-24 09:43] VITALS: BMI 35.2
[2024-02-24] MEDS: Furosemide 40 MG (4 mL) VIAL SLOW IVP SCH (10:07)
[2024-02-24] MEDS: Tadalafil [Tadalafil] 5 MG Tablet PO SCH (22:46)
[2024-02-25] MEDS: Labetalol HCl 100 MG/20 ML VIAL SLOW IVP PRN (04:56)
[2024-02-25 05:01] LABS: #Basophils Less than 0.03 10x3/uL (0.0-0.2); %Basophils 0.1 % (0.0-1.0); %Eosinophils 0.7 % (0.0-10.0); %Lymphocytes 13.1 % (21.0-51.0); %Monocytes 11.2 % (0.0-10.0); %Neutrophils 74.1 % (42.0-75.0); Hematocrit 34.9 % (36.0-47.0); Hemoglobin 10.6 g/dL (12.0-16.0); Mean Corpuscular HGB CONC 30.4 g/dL (32.0-36.0); Mean Corpuscular Hemoglobin 25.9 pg (27.0-31.0); Mean Corpuscular Volume 85.1 fL (78.0-98.0); Mean Platelet Volume 10.4 fL (7.4-10.4); Platelet Count 222 10x3/uL (130-400); RBC Distribution Width 16.3 % (11.5-14.5)
[2024-02-25 05:19] LABS: Anion Gap 16 mmol/L (10-20); BUN (Urea Nitrogen) 30 mg/dL (9.8-20.1); Calc. Creatinine Clearance 71 mL/min (70-130); Calcium 9.4 mg/dL (7.8-10.44); Carbon Dioxide 25 mmol/L (23-31); Chloride 108 mmol/L (98-107); Estimated GFR 67; Glucose 93 mg/dL (83-110); Potassium 3.5 mmol/L (3.5-5.1); Sodium 145 mmol/L (136-145)
[2024-02-25] MEDS ORDERED: Acetaminophen 325 MG TAB PO SCH (08:30)
[2024-02-25] MEDS: Ibuprofen 600 MG TAB PO SCH (09:22)
[2024-02-25] MEDS: Furosemide 40 MG (4 mL) VIAL SLOW IVP SCH (13:19)
[2024-02-25] MEDS: Ondansetron PF 4 MG/2 ML Vial IVP PRN (23:50)
[2024-02-26] MEDS: Furosemide 40 MG (4 mL) VIAL SLOW IVP SCH (15:21)
[2024-02-26] MEDS: Amoxicillin/Potassium Clav 875 MG TAB PO SCH (22:10)
[2024-02-27 08:43] LABS: #Basophils Less than 0.03 10x3/uL (0.0-0.2); %Basophils 0.3 % (0.0-1.0); %Eosinophils 1.3 % (0.0-10.0); %Lymphocytes 19.6 % (21.0-51.0); %Monocytes 9.3 % (0.0-10.0); %Neutrophils 68.2 % (42.0-75.0); Hematocrit 37.6 % (36.0-47.0); Hemoglobin 11.8 g/dL (12.0-16.0); Mean Corpuscular HGB CONC 31.4 g/dL (32.0-36.0); Mean Corpuscular Hemoglobin 25.8 pg (27.0-31.0); Mean Corpuscular Volume 82.3 fL (78.0-98.0); Mean Platelet Volume 10.9 fL (7.4-10.4); Platelet Count 298 10x3/uL (130-400); RBC Distribution Width 15.9 % (11.5-14.5); Red Blood Cell (RBC) Count 4.57 mill/uL (4.20-5.40)
[2024-02-27 08:57] LABS: Anion Gap 16 mmol/L (10-20); BUN (Urea Nitrogen) 29 mg/dL (9.8-20.1); Calc. Creatinine Clearance 68 mL/min (70-130); Calcium 9.1 mg/dL (7.8-10.44); Carbon Dioxide 30 mmol/L (23-31); Chloride 103 mmol/L (98-107); Estimated GFR 63; Glucose 113 mg/dL (83-110); Potassium 2.7 mmol/L (3.5-5.1); Sodium 146 mmol/L (136-145)
[2024-02-27] MEDS: Potassium Chloride 20 MEQ TAB PO SCH ×3 (09:20→18:22)
[2024-02-27] MEDS: Isosorbide Mononitrate 30 MG ER.TAB PO SCH (09:39)
[2024-02-27] MEDS ORDERED: Potassium Chloride 20 MEQ in Premix 1 BAG IVPB SCH (16:45)
[2024-02-27 17:42] LABS: Anion Gap 18 mmol/L (10-20); BUN (Urea Nitrogen) 30 mg/dL (9.8-20.1); Calc. Creatinine Clearance 60 mL/min (70-130); Calcium 9.4 mg/dL (7.8-10.44); Carbon Dioxide 25 mmol/L (23-31); Chloride 103 mmol/L (98-107); Estimated GFR 55; Glucose 130 mg/dL (83-110); Magnesium 1.7 mg/dL (1.6-2.6); Phosphorus 2.5 mg/dL (2.3-4.7); Potassium 3.3 mmol/L (3.5-5.1); Sodium 143 mmol/L (136-145)
[2024-02-28 05:04] LABS: #Basophils Less than 0.03 10x3/uL (0.0-0.2); %Basophils 0.3 % (0.0-1.0); %Eosinophils 1.7 % (0.0-10.0); %Lymphocytes 31.6 % (21.0-51.0); %Monocytes 9.4 % (0.0-10.0); %Neutrophils 55.4 % (42.0-75.0); Hematocrit 38.6 % (36.0-47.0); Hemoglobin 12.2 g/dL (12.0-16.0); Mean Corpuscular HGB CONC 31.6 g/dL (32.0-36.0); Mean Corpuscular Hemoglobin 25.2 pg (27.0-31.0); Mean Corpuscular Volume 79.8 fL (78.0-98.0); Mean Platelet Volume 10.4 fL (7.4-10.4); Platelet Count 357 10x3/uL (130-400); RBC Distribution Width 15.9 % (11.5-14.5); Red Blood Cell (RBC) Count 4.84 mill/uL (4.20-5.40)
[2024-02-28 05:23] LABS: Anion Gap 20 mmol/L (10-20); BUN (Urea Nitrogen) 30 mg/dL (9.8-20.1); Calc. Creatinine Clearance 61 mL/min (70-130); Calcium 9.5 mg/dL (7.8-10.44); Carbon Dioxide 25 mmol/L (23-31); Chloride 101 mmol/L (98-107); Estimated GFR 56; Glucose 121 mg/dL (83-110); Magnesium 1.8 mg/dL (1.6-2.6); Potassium 3.7 mmol/L (3.5-5.1); Sodium 142 mmol/L (136-145)
[2024-02-28 05:27] LABS: Phosphorus 2.9 mg/dL (2.3-4.7)
[2024-02-28] MEDS ORDERED: Isosorbide Mononitrate 30 MG ER.TAB PO SCH (09:00)
[2024-02-28] MEDS: Famotidine 20 MG TAB PO SCH (09:05)
[2024-02-28] MEDS: Polyethylene Glycol 3350 17 GM Packet PO SCH (09:08)
[2024-02-28] MEDS: Senokot S 8.6-50 MG TAB PO SCH (09:09)
[2024-02-28 12:55] LABS: Actual Bicarbonate (HCO3a) 23.5 mEq/L (22-28); Base Excess (BEa) 1.1 mEq/L (-2.0 to +3.0); CO2 Tension 30.3 mmHg (35.0-45.0); Calcium, Ionized (arterial) 1.17 mmol/L (1.12-1.30); Carboxyhemoglobin (COHb) 0.7 gm% (0.0-3.0); Hematocrit-ABG 36 % (36.0-47.0); Hemoglobin (Hb) 12.3 g/dL (12.0-16.0); O2 Tension (PaO2), arterial 326.9 mmHg (> 60.0); Potassium - ABG Lab 4.05 mmol/L (3.70-5.30); Puncture Site Arterial Line; pH, Arterial 7.507 (7.35-7.45)
[2024-02-29 05:48] VITALS: TEMP 97.7
[2024-02-29 06:39] LABS: #Basophils Less than 0.03 10x3/uL (0.0-0.2); %Basophils 0.3 % (0.0-1.0); %Eosinophils 1.5 % (0.0-10.0); %Lymphocytes 20.7 % (21.0-51.0); %Monocytes 10.1 % (0.0-10.0); %Neutrophils 66.2 % (42.0-75.0); Hematocrit 35.8 % (36.0-47.0); Hemoglobin 10.9 g/dL (12.0-16.0); Mean Corpuscular HGB CONC 30.4 g/dL (32.0-36.0); Mean Corpuscular Hemoglobin 24.6 pg (27.0-31.0); Mean Corpuscular Volume 80.8 fL (78.0-98.0); Platelet Count 328 10x3/uL (130-400); RBC Distribution Width 15.9 % (11.5-14.5); Red Blood Cell (RBC) Count 4.43 mill/uL (4.20-5.40)
[2024-02-29 07:03] LABS: Anion Gap 17 mmol/L (10-20); BUN (Urea Nitrogen) 24 mg/dL (9.8-20.1); Calc. Creatinine Clearance 60 mL/min (70-130); Calcium 9.1 mg/dL (7.8-10.44); Carbon Dioxide 24 mmol/L (23-31); Chloride 105 mmol/L (98-107); Estimated GFR 55; Glucose 93 mg/dL (83-110); Potassium 3.5 mmol/L (3.5-5.1); Sodium 142 mmol/L (136-145)
[2024-02-29 12:10] VITALS: BP 123/70
== END 2024-02-29 16:20 | disposition home or self-care (01) | DRG 335 ==
LOC: ERS 14:27 → OBSVTOIN 18:39 → T4-A 18:39 → INTOOBSV 18:39 → OBSVTOIN 02-21 17:04 → SURG B 02-21 20:36
PROVIDERS: ADMIT Student in an Organized Health Care Education/Training Program; ATTEND Internal Medicine
PROC: 0DN80ZZ Release Small Intestine, Open Approach (ICD-10-PCS; principal; 2024-02-21)
PROC: 0DJ00ZZ Inspection of Upper Intestinal Tract, Open Approach (ICD-10-PCS; 2024-02-21)
PROC: 0D9670Z Drainage of Stomach with Drainage Device, Via Natural or Artificial Opening (ICD-10-PCS; 2024-02-21)
PROC: 3E0G76Z Introduction of Nutritional Substance into Upper GI, Via Natural or Artificial Opening (ICD-10-PCS; 2024-02-21)
PROC: 4A033R1 Measurement of Arterial Saturation, Peripheral, Percutaneous Approach (ICD-10-PCS; 2024-02-21)
PROC: 3E033XZ Introduction of Vasopressor into Peripheral Vein, Percutaneous Approach (ICD-10-PCS; 2024-02-21)
DX: K56.609 Unspecified intestinal obstruction, unspecified as to partial versus complete obstruction (principal); I50.33 Acute on chronic diastolic (congestive) heart failure; I13.0 Hypertensive heart and chronic kidney disease with heart failure and stage 1 through stage 4 chronic kidney disease, or unspecified chronic kidney disease; M35.89 Other specified systemic involvement of connective tissue; R18.8 Other ascites; E87.6 Hypokalemia; N18.30 Chronic kidney disease, stage 3 unspecified; I48.91 Unspecified atrial fibrillation; I49.5 Sick sinus syndrome; I25.10 Atherosclerotic heart disease of native coronary artery without angina pectoris; I27.20 Pulmonary hypertension, unspecified; I25.2 Old myocardial infarction; Z90.710 Acquired absence of both cervix and uterus; Z90.49 Acquired absence of other specified parts of digestive tract; Z98.51 Tubal ligation status; Z98.890 Other specified postprocedural states; Z88.8 Allergy status to other drugs, medicaments and biological substances; Z79.899 Other long term (current) drug therapy; Z95.0 Presence of cardiac pacemaker
CPT/HCPCS: 36415; 36416; 43752; 71045; 74018; 74019; 74177; 74250; 80048; 80053; 82805; 83690; 83735; 83880; 84100; 84484; 85025; 93005; 93010; 96374; 96375; 96376; A4314; C1776; C9113; G0378; J0171; J0665; J0694; J1100; J1650; J1885; J1940; J2001; J2250; J2270; J2371; J2405; J2550; J2704; J3010; J3480; J3490; J7050; J7120; Q9963; Q9967; S0028

== ENCOUNTER 2025-03-27 14:41 | Inpatient (IN) | payer OTHER ==
[2025-03-27 18:56] VITALS: BMI 38.6
[2025-03-27] MEDS ORDERED: Albuterol 200 PUFF (6.7GM INHALER) INH PRN (20:38)
[2025-03-27] MEDS ORDERED: Pantoprazole 40 MG DR.TAB PO PRN (20:38)
[2025-03-27] MEDS ORDERED: Calcium Carbonate 500 MG ChewTAB PO PRN (20:40)
[2025-03-27] MEDS ORDERED: Ondansetron PF 4 MG/2 ML Vial IVP PRN (20:40)
[2025-03-27] MEDS: Gabapentin 300 MG CAP PO SCH (22:02)
[2025-03-27] MEDS: Losartan 25 MG TAB PO SCH (22:02)
[2025-03-27] MEDS: Ezetimibe 10 MG TAB PO SCH (22:02)
[2025-03-27] MEDS: Famotidine 20 MG TAB PO SCH (22:02)
[2025-03-27] MEDS: Cefdinir 300 MG CAP PO SCH (22:03)
[2025-03-27] MEDS: Methocarbamol 500 MG TAB PO SCH (22:03)
[2025-03-27] MEDS: clonazePAM 1 MG TAB PO SCH (22:04)
[2025-03-27] MEDS: Magnesium Oxide 400 MG TAB PO SCH (22:05)
[2025-03-28 04:57] LABS: #Basophils Less than 0.03 10x3/uL (0.0-0.2); #Eosinophils 0.06 10x3/uL (0.0-0.7); #Monocytes 0.57 10x3/uL (0.11-0.59); #Neutrophils 2.17 10x3/uL (1.40-6.50); %Basophils 0.6 % (0.0-1.0); %Eosinophils 1.7 % (0.0-10.0); %Lymphocytes 16.6 % (21.0-51.0); %Monocytes 16.6 % (0.0-10.0); %Neutrophils 63.0 % (42.0-75.0); Hematocrit 28.9 % (36.0-47.0); Hemoglobin 9.0 g/dL (12.0-16.0); Mean Corpuscular Hemoglobin 27.7 pg (27.0-31.0); Mean Corpuscular Volume 88.9 fL (78.0-98.0); Platelet Count 98 10x3/uL (130-400); Red Blood Cell (RBC) Count 3.25 mill/uL (4.20-5.40); White Blood Cell (WBC) Count 3.44 10x3/uL (4.8-10.8)
[2025-03-28 05:06] LABS: ALT (SGPT) 13 U/L (Less than 34); AST (SGOT) 39 U/L (11-34); Albumin 4.2 g/dL (3.1-4.5); Alkaline Phosphatase 83 U/L (40-110); Anion Gap 18 mmol/L (10-20); BUN (Urea Nitrogen) 106 mg/dL (9.8-20.1); Bilirubin, Total 0.8 mg/dL (0.3-1.2); Calc. Creatinine Clearance 26 mL/min (70-130); Calcium 9.6 mg/dL (7.8-10.44); Carbon Dioxide 27 mmol/L (23-31); Chloride 101 mmol/L (98-107); Globulin 3.2 g/dL (2.4-3.5); Glucose 85 mg/dL (83-110); Potassium 5.0 mmol/L (3.5-5.1); Sodium 141 mmol/L (136-145)
[2025-03-28] MEDS: Furosemide 40 MG (4 mL) VIAL SLOW IVP SCH (05:43)
[2025-03-28] MEDS ORDERED: Furosemide 40 MG TAB PO SCH (07:30)
[2025-03-28] MEDS: Mometasone 200 MCG/Formoterol 5 MCG 120 PUFF INHALER INH SCH (08:16)
[2025-03-28] MEDS: Carvedilol 3.125 MG TAB PO SCH (09:13)
[2025-03-28] MEDS: EPOETIN ALFA-EPBX (ESRD) 10,000 UNITS/ML VIAL SC SCH (14:06)
[2025-03-28 16:06] LABS: Glucose, Urine (Dipstick) 30 mg/dL (Negative); Leukocyte 500 Leu/uL (Negative); Protein, Urine (Dipstick) Negative (Neg-Trace); Specific Gravity, Urine 1.010 (1.002-1.036); WBC/HPF Greater than 50 HPF (0-3)
[2025-03-28 16:22] LABS: Bacteria/HPF 3+ HPF (None Seen)
[2025-03-28 16:24] LABS: Protein, Urine Random Quant Less than 10 mg/dL (1-14)
[2025-03-28] MEDS: Gabapentin 300 MG CAP PO SCH (20:11)
[2025-03-28] MEDS: Famotidine 20 MG TAB PO SCH (20:13)
[2025-03-29] MEDS: Cefdinir 300 MG CAP PO SCH (08:40)
[2025-03-29 12:51] LABS: Anion Gap 16 mmol/L (10-20); BUN (Urea Nitrogen) 94 mg/dL (9.8-20.1); Calc. Creatinine Clearance 29 mL/min (70-130); Calcium 9.4 mg/dL (7.8-10.44); Carbon Dioxide 30 mmol/L (23-31); Chloride 102 mmol/L (98-107); Glucose 112 mg/dL (83-110); Potassium 4.4 mmol/L (3.5-5.1); Sodium 144 mmol/L (136-145)
[2025-03-29] MEDS: Acetaminophen 325 MG TAB PO PRN (14:50)
[2025-03-29] MEDS: HYDROcodone/Acetaminophen 5/325 mg Tablet PO PRN (23:55)
[2025-03-30 07:54] LABS: Anion Gap 18 mmol/L (10-20); BUN (Urea Nitrogen) 83 mg/dL (9.8-20.1); Calc. Creatinine Clearance 30 mL/min (70-130); Calcium 9.6 mg/dL (7.8-10.44); Carbon Dioxide 32 mmol/L (23-31); Chloride 100 mmol/L (98-107); Glucose 90 mg/dL (83-110); Potassium 4.2 mmol/L (3.5-5.1); Sodium 146 mmol/L (136-145)
[2025-03-30] MEDS: HYDROcodone/Acetaminophen 5/325 mg Tablet PO SCH (22:42)
[2025-03-31 04:44] LABS: #Basophils Less than 0.03 10x3/uL (0.0-0.2); #Eosinophils 0.26 10x3/uL (0.0-0.7); #Monocytes 0.58 10x3/uL (0.11-0.59); #Neutrophils 1.67 10x3/uL (1.40-6.50); %Basophils 0.6 % (0.0-1.0); %Eosinophils 7.3 % (0.0-10.0); %Lymphocytes 28.6 % (21.0-51.0); %Monocytes 16.2 % (0.0-10.0); %Neutrophils 46.7 % (42.0-75.0); Hematocrit 32.4 % (36.0-47.0); Hemoglobin 9.4 g/dL (12.0-16.0); Mean Corpuscular Hemoglobin 27.7 pg (27.0-31.0); Mean Corpuscular Volume 95.6 fL (78.0-98.0); Platelet Count 69 10x3/uL (130-400); Red Blood Cell (RBC) Count 3.39 mill/uL (4.20-5.40); White Blood Cell (WBC) Count 3.57 10x3/uL (4.8-10.8)
[2025-03-31 06:16] LABS: Anion Gap 12 mmol/L (10-20); BUN (Urea Nitrogen) 81 mg/dL (9.8-20.1); Calc. Creatinine Clearance 30 mL/min (70-130); Calcium 9.1 mg/dL (7.8-10.44); Carbon Dioxide 35 mmol/L (23-31); Chloride 100 mmol/L (98-107); Glucose 95 mg/dL (83-110); Potassium 3.9 mmol/L (3.5-5.1); Sodium 143 mmol/L (136-145)
[2025-03-31] MEDS ORDERED: cefTRIAXone\\ROCEPHIN 2 GM in Sodium Chloride 0.9% 100 ML IVPB SCH (09:45)
[2025-03-31] MEDS: cefTRIAXone\\ROCEPHIN 2 GM in Sodium Chloride 0.9% 100 ML IVPB SCH (10:07)
[2025-04-01 04:58] LABS: #Basophils Less than 0.03 10x3/uL (0.0-0.2); #Eosinophils 0.27 10x3/uL (0.0-0.7); #Monocytes 0.56 10x3/uL (0.11-0.59); #Neutrophils 2.78 10x3/uL (1.40-6.50); %Basophils 0.2 % (0.0-1.0); %Eosinophils 5.8 % (0.0-10.0); %Lymphocytes 21.9 % (21.0-51.0); %Monocytes 12.0 % (0.0-10.0); %Neutrophils 59.7 % (42.0-75.0); Hematocrit 30.2 % (36.0-47.0); Hemoglobin 9.2 g/dL (12.0-16.0); Mean Corpuscular Hemoglobin 27.4 pg (27.0-31.0); Mean Corpuscular Volume 89.9 fL (78.0-98.0); Platelet Count 79 10x3/uL (130-400); Red Blood Cell (RBC) Count 3.36 mill/uL (4.20-5.40); White Blood Cell (WBC) Count 4.66 10x3/uL (4.8-10.8)
[2025-04-01 05:11] LABS: Anion Gap 16 mmol/L (10-20); BUN (Urea Nitrogen) 62 mg/dL (9.8-20.1); Calc. Creatinine Clearance 31 mL/min (70-130); Calcium 9.5 mg/dL (7.8-10.44); Carbon Dioxide 33 mmol/L (23-31); Chloride 98 mmol/L (98-107); Glucose 96 mg/dL (83-110); Potassium 4.3 mmol/L (3.5-5.1); Sodium 143 mmol/L (136-145)
[2025-04-01] MEDS: Furosemide 40 MG TAB PO SCH (10:36)
[2025-04-02 05:04] LABS: Anion Gap 14 mmol/L (10-20); BUN (Urea Nitrogen) 59 mg/dL (9.8-20.1); Calc. Creatinine Clearance 35 mL/min (70-130); Calcium 9.1 mg/dL (7.8-10.44); Carbon Dioxide 35 mmol/L (23-31); Chloride 99 mmol/L (98-107); Glucose 87 mg/dL (83-110); Potassium 3.9 mmol/L (3.5-5.1); Sodium 144 mmol/L (136-145)
[2025-04-02 19:25] VITALS: BP 125/63; TEMP 97.7
== END 2025-04-02 19:45 | disposition home health service (06) | DRG 682 ==
LOC: 2NO 18:39
PROVIDERS: ADMIT Hospitalist; ATTEND Internal Medicine
DX: N17.9 Acute kidney failure, unspecified (principal); I50.33 Acute on chronic diastolic (congestive) heart failure; I13.0 Hypertensive heart and chronic kidney disease with heart failure and stage 1 through stage 4 chronic kidney disease, or unspecified chronic kidney disease; E87.0 Hyperosmolality and hypernatremia; N39.0 Urinary tract infection, site not specified; M35.89 Other specified systemic involvement of connective tissue; E87.1 Hypo-osmolality and hyponatremia; N18.4 Chronic kidney disease, stage 4 (severe); I25.10 Atherosclerotic heart disease of native coronary artery without angina pectoris; E87.5 Hyperkalemia; I48.0 Paroxysmal atrial fibrillation; D63.1 Anemia in chronic kidney disease; Z90.49 Acquired absence of other specified parts of digestive tract; Z88.8 Allergy status to other drugs, medicaments and biological substances; Z98.890 Other specified postprocedural states; Z90.710 Acquired absence of both cervix and uterus; Z98.51 Tubal ligation status; Z79.899 Other long term (current) drug therapy; Z79.51 Long term (current) use of inhaled steroids; I27.20 Pulmonary hypertension, unspecified; I49.5 Sick sinus syndrome; Z95.5 Presence of coronary angioplasty implant and graft; E66.9 Obesity, unspecified; I73.9 Peripheral vascular disease, unspecified; S91.204A Unspecified open wound of right lesser toe(s) with damage to nail, initial encounter; X58.XXXA Exposure to other specified factors, initial encounter; R68.0 Hypothermia, not associated with low environmental temperature; B96.20 Unspecified Escherichia coli [E. coli] as the cause of diseases classified elsewhere; Z68.35 Body mass index [BMI] 35.0-35.9, adult; S91.205A Unspecified open wound of left lesser toe(s) with damage to nail, initial encounter; S90.412A Abrasion, left great toe, initial encounter; Z95.0 Presence of cardiac pacemaker; Z91.148 Patient's other noncompliance with medication regimen for other reason
CPT/HCPCS: 36415; 36416; 71045; 76770; 80048; 80053; 81001; 82043; 82306; 83880; 83970; 84156; 85025; 85610; 85730; 86850; 86900; 86901; 87040; 87077; 87086; 87186; 93798; 93923; 94664; 96374; 96375; 97139; J0696; J1940; Q5105

== ENCOUNTER 2025-06-29 17:24 | Inpatient (IN) | payer OTHER ==
[~2025-06-29 17:24] MED LIST changes: -Iopamidol-370 76% 500 ML 1 ML ONE; +Iopamidol-370 76% 500 ML MDV (1 ML CHARGE) ONE
[2025-06-29 18:59] LABS: #Basophils Less than 0.03 10x3/uL (0.0-0.2); #Eosinophils 0.11 10x3/uL (0.0-0.7); #Monocytes 1.23 10x3/uL (0.11-0.59); #Neutrophils 5.85 10x3/uL (1.40-6.50); %Basophils 0.2 % (0.0-1.0); %Eosinophils 1.3 % (0.0-10.0); %Lymphocytes 12.8 % (21.0-51.0); %Monocytes 14.8 % (0.0-10.0); %Neutrophils 70.5 % (42.0-75.0); Hematocrit 29.7 % (36.0-47.0); Hemoglobin 9.0 g/dL (12.0-16.0); Mean Corpuscular Hemoglobin 28.3 pg (27.0-31.0); Mean Corpuscular Volume 93.4 fL (78.0-98.0); Platelet Count 172 10x3/uL (130-400); Red Blood Cell (RBC) Count 3.18 mill/uL (4.20-5.40); White Blood Cell (WBC) Count 8.30 10x3/uL (4.8-10.8)
[2025-06-29 19:28] LABS: ALT (SGPT) 8 U/L (Less than 34); AST (SGOT) 24 U/L (11-34); Albumin 3.2 g/dL (3.1-4.5); Alkaline Phosphatase 119 U/L (40-110); Anion Gap 16 mmol/L (10-20); BUN (Urea Nitrogen) 55 mg/dL (9.8-20.1); Bilirubin, Total 0.6 mg/dL (0.3-1.2); Calc. Creatinine Clearance 0 mL/min (70-130); Calcium 8.5 mg/dL (7.8-10.44); Carbon Dioxide 23 mmol/L (23-31); Chloride 99 mmol/L (98-107); Globulin 3.1 g/dL (2.4-3.5); Glucose 133 mg/dL (83-110); Potassium 4.8 mmol/L (3.5-5.1); Sodium 133 mmol/L (136-145)
[2025-06-29 20:06] LABS: Bacteria/HPF None Seen HPF (None Seen); CAUTI Indications for Culture Dysuria,urgency,freq; Glucose, Urine (Dipstick) Normal (Negative); Leukocyte Negative Leu/uL (Negative); Protein, Urine (Dipstick) Negative (Neg-Trace); RBC/HPF None Seen HPF (0-3); Specific Gravity, Urine 1.000 (1.002-1.036); WBC/HPF None Seen HPF (0-3)
[2025-06-29 20:13] LABS: Urine Culture Reflex No No
[2025-06-29] MEDS ORDERED: HYDROcodone/Acetaminophen 5/325 mg Tablet ONE (21:41)
[2025-06-29] MEDS ORDERED: Pantoprazole 40 MG DR.TAB PO PRN (22:16)
[2025-06-30 00:16] VITALS: BMI 40.5
[2025-06-30] MEDS: Furosemide 100 MG (10 mL) VIAL SLOW IVP SCH (01:36)
[2025-06-30 05:15] LABS: #Basophils Less than 0.03 10x3/uL (0.0-0.2); #Eosinophils 0.16 10x3/uL (0.0-0.7); #Monocytes 1.02 10x3/uL (0.11-0.59); #Neutrophils 4.02 10x3/uL (1.40-6.50); %Basophils 0.3 % (0.0-1.0); %Eosinophils 2.5 % (0.0-10.0); %Lymphocytes 17.4 % (21.0-51.0); %Monocytes 16.1 % (0.0-10.0); %Neutrophils 63.4 % (42.0-75.0); Hematocrit 28.3 % (36.0-47.0); Hemoglobin 8.5 g/dL (12.0-16.0); Mean Corpuscular Hemoglobin 28.1 pg (27.0-31.0); Mean Corpuscular Volume 93.4 fL (78.0-98.0); Platelet Count 180 10x3/uL (130-400); Red Blood Cell (RBC) Count 3.03 mill/uL (4.20-5.40); White Blood Cell (WBC) Count 6.34 10x3/uL (4.8-10.8)
[2025-06-30 05:41] LABS: Anion Gap 17 mmol/L (10-20); BUN (Urea Nitrogen) 53 mg/dL (9.8-20.1); Calc. Creatinine Clearance 27 mL/min (70-130); Calcium 8.6 mg/dL (7.8-10.44); Carbon Dioxide 24 mmol/L (23-31); Chloride 101 mmol/L (98-107); Glucose 91 mg/dL (83-110); Potassium 4.9 mmol/L (3.5-5.1); Sodium 137 mmol/L (136-145)
[2025-06-30] MEDS: Mometasone 200 MCG/Formoterol 5 MCG 120 PUFF INHALER INH SCH (06:56)
[2025-06-30] MEDS: Ezetimibe 10 MG TAB PO SCH (08:22)
[2025-06-30] MEDS: Acetaminophen 325 MG TAB PO PRN (08:23)
[2025-06-30] MEDS: Methocarbamol 500 MG TAB PO SCH (20:31)
[2025-06-30] MEDS: Gabapentin 300 MG CAP PO SCH (20:31)
[2025-07-01 05:12] LABS: #Basophils Less than 0.03 10x3/uL (0.0-0.2); #Eosinophils 0.15 10x3/uL (0.0-0.7); #Monocytes 0.73 10x3/uL (0.11-0.59); #Neutrophils 2.70 10x3/uL (1.40-6.50); %Basophils 0.4 % (0.0-1.0); %Eosinophils 3.3 % (0.0-10.0); %Lymphocytes 21.5 % (21.0-51.0); %Monocytes 15.8 % (0.0-10.0); %Neutrophils 58.6 % (42.0-75.0); Hematocrit 27.6 % (36.0-47.0); Hemoglobin 8.3 g/dL (12.0-16.0); Mean Corpuscular Hemoglobin 27.9 pg (27.0-31.0); Mean Corpuscular Volume 92.9 fL (78.0-98.0); Platelet Count 186 10x3/uL (130-400); Red Blood Cell (RBC) Count 2.97 mill/uL (4.20-5.40); White Blood Cell (WBC) Count 4.61 10x3/uL (4.8-10.8)
[2025-07-01 05:35] LABS: ALT (SGPT) 7 U/L (Less than 34); AST (SGOT) 19 U/L (11-34); Albumin 2.9 g/dL (3.1-4.5); Alkaline Phosphatase 101 U/L (40-110); Anion Gap 14 mmol/L (10-20); BUN (Urea Nitrogen) 52 mg/dL (9.8-20.1); Bilirubin, Total 0.6 mg/dL (0.3-1.2); Calc. Creatinine Clearance 34 mL/min (70-130); Calcium 8.8 mg/dL (7.8-10.44); Carbon Dioxide 25 mmol/L (23-31); Chloride 101 mmol/L (98-107); Globulin 2.9 g/dL (2.4-3.5); Glucose 86 mg/dL (83-110); Potassium 4.8 mmol/L (3.5-5.1); Sodium 135 mmol/L (136-145)
[2025-07-01] MEDS: Transdermal Patch Removal LIDOCAINE TOP SCH (05:47)
[2025-07-01] MEDS: Furosemide 20 MG TAB PO SCH (08:59)
[2025-07-01] MEDS ORDERED: Furosemide 40 MG TAB PO SCH (09:00)
[2025-07-01] MEDS: FLU (Fluad Triv) 25-26 (65UP)PF 45 MCG/0.5 ML Syringe IM ONE (12:10)
[2025-07-01] MEDS: Senokot S 8.6-50 MG TAB PO PRN (13:41)
[2025-07-01] MEDS: Bisacodyl 10 MG SUPP PR PRN (13:42)
[2025-07-02 05:33] LABS: ALT (SGPT) 8 U/L (Less than 34); AST (SGOT) 20 U/L (11-34); Albumin 2.9 g/dL (3.1-4.5); Alkaline Phosphatase 107 U/L (40-110); Anion Gap 12 mmol/L (10-20); BUN (Urea Nitrogen) 46 mg/dL (9.8-20.1); Bilirubin, Total 0.5 mg/dL (0.3-1.2); Calc. Creatinine Clearance 42 mL/min (70-130); Calcium 8.8 mg/dL (7.8-10.44); Carbon Dioxide 28 mmol/L (23-31); Chloride 100 mmol/L (98-107); Globulin 2.9 g/dL (2.4-3.5); Glucose 83 mg/dL (83-110); Potassium 4.6 mmol/L (3.5-5.1); Sodium 135 mmol/L (136-145)
[2025-07-03] MEDS: Furosemide 40 MG (4 mL) VIAL SLOW IVP SCH (13:11)
[2025-07-03] MEDS: Furosemide 40 MG TAB PO SCH (13:15)
[2025-07-04 07:10] LABS: #Basophils 0.03 10x3/uL (0.0-0.2); #Eosinophils 0.16 10x3/uL (0.0-0.7); #Monocytes 0.77 10x3/uL (0.11-0.59); #Neutrophils 2.36 10x3/uL (1.40-6.50); %Basophils 0.7 % (0.0-1.0); %Eosinophils 3.5 % (0.0-10.0); %Lymphocytes 26.8 % (21.0-51.0); %Monocytes 16.9 % (0.0-10.0); %Neutrophils 51.7 % (42.0-75.0); Hematocrit 29.8 % (36.0-47.0); Hemoglobin 9.2 g/dL (12.0-16.0); Mean Corpuscular Hemoglobin 28.3 pg (27.0-31.0); Mean Corpuscular Volume 91.7 fL (78.0-98.0); Platelet Count 216 10x3/uL (130-400); Red Blood Cell (RBC) Count 3.25 mill/uL (4.20-5.40); White Blood Cell (WBC) Count 4.56 10x3/uL (4.8-10.8)
[2025-07-04 07:38] LABS: Albumin 3.0 g/dL (3.1-4.5); Anion Gap 14 mmol/L (10-20); BUN (Urea Nitrogen) 31 mg/dL (9.8-20.1); BUN/Creatinine Ratio 25.00; Calc. Creatinine Clearance 55 mL/min (70-130); Calcium 8.9 mg/dL (7.8-10.44); Carbon Dioxide 30 mmol/L (23-31); Chloride 99 mmol/L (98-107); Glucose 87 mg/dL (83-110); Potassium 4.6 mmol/L (3.5-5.1); Sodium 138 mmol/L (136-145)
[2025-07-04] MEDS: Furosemide 40 MG TAB PO SCH (09:03)
[2025-07-05 05:53] LABS: #Basophils Less than 0.03 10x3/uL (0.0-0.2); #Eosinophils 0.14 10x3/uL (0.0-0.7); #Monocytes 0.66 10x3/uL (0.11-0.59); #Neutrophils 2.64 10x3/uL (1.40-6.50); %Basophils 0.2 % (0.0-1.0); %Eosinophils 3.2 % (0.0-10.0); %Lymphocytes 20.8 % (21.0-51.0); %Monocytes 15.1 % (0.0-10.0); %Neutrophils 60.5 % (42.0-75.0); Hematocrit 29.3 % (36.0-47.0); Hemoglobin 9.1 g/dL (12.0-16.0); Mean Corpuscular Hemoglobin 28.3 pg (27.0-31.0); Mean Corpuscular Volume 91.0 fL (78.0-98.0); Platelet Count 202 10x3/uL (130-400); Red Blood Cell (RBC) Count 3.22 mill/uL (4.20-5.40); White Blood Cell (WBC) Count 4.37 10x3/uL (4.8-10.8)
[2025-07-05 06:03] LABS: Albumin 2.9 g/dL (3.1-4.5); Anion Gap 13 mmol/L (10-20); BUN (Urea Nitrogen) 27 mg/dL (9.8-20.1); BUN/Creatinine Ratio 22.13; Calc. Creatinine Clearance 56 mL/min (70-130); Calcium 8.9 mg/dL (7.8-10.44); Carbon Dioxide 33 mmol/L (23-31); Chloride 98 mmol/L (98-107); Glucose 89 mg/dL (83-110); Potassium 4.1 mmol/L (3.5-5.1); Sodium 140 mmol/L (136-145)
[2025-07-05 08:03] VITALS: BP 147/68; TEMP 98
== END 2025-07-05 14:12 | DRG 683 ==
LOC: ERS 17:24 → T4-A 22:12 → OBSVTOIN 06-30 10:07
PROVIDERS: ADMIT Internal Medicine; ATTEND Student in an Organized Health Care Education/Training Program
PROC: 0T9B70Z Drainage of Bladder with Drainage Device, Via Natural or Artificial Opening (ICD-10-PCS; principal; 2025-06-29)
PROC: 3E02340 Introduction of Influenza Vaccine into Muscle, Percutaneous Approach (ICD-10-PCS; 2025-06-30)
DX: N17.9 Acute kidney failure, unspecified (principal); I13.0 Hypertensive heart and chronic kidney disease with heart failure and stage 1 through stage 4 chronic kidney disease, or unspecified chronic kidney disease; I50.32 Chronic diastolic (congestive) heart failure; J96.11 Chronic respiratory failure with hypoxia; I48.20 Chronic atrial fibrillation, unspecified; J90 Pleural effusion, not elsewhere classified; N13.9 Obstructive and reflux uropathy, unspecified; K56.41 Fecal impaction; E87.70 Fluid overload, unspecified; Z91.81 History of falling; Z88.8 Allergy status to other drugs, medicaments and biological substances; I25.10 Atherosclerotic heart disease of native coronary artery without angina pectoris; Z23 Encounter for immunization; I49.5 Sick sinus syndrome; I27.20 Pulmonary hypertension, unspecified; Z90.710 Acquired absence of both cervix and uterus; Z90.49 Acquired absence of other specified parts of digestive tract; Z98.51 Tubal ligation status; Z95.5 Presence of coronary angioplasty implant and graft; Z96.0 Presence of urogenital implants; N18.32 Chronic kidney disease, stage 3b
CPT/HCPCS: 36415; 36416; 71045; 72050; 74177; 80048; 80053; 80069; 81001; 83605; 83880; 84484; 85025; 87040; 93005; 93306; G0378; J1940; Q9967

== ENCOUNTER 2025-07-11 10:28 | Inpatient (IN) | payer OTHER ==
[2025-07-11] MEDS ORDERED: Norepinephrine 8 MG/0.9% NS 250 ML ONE (10:33)
[2025-07-11 10:41] LABS: Actual Bicarbonate (HCO3v) 30.0 mEq/L (22-28); Analyzer IN Cardio ER; Base Excess 5.7 mEq/L (-2.0 to +3.0); Calcium, Ionized (venous) 1.00 mmol/L (1.16-1.32); Chloride (VBG) 94 mmol/L (98-106); Hematocrit-VBG 32 % (36.0-47.0); Hemoglobin (Hb) 11.0 g/dL (11.7-16.1); Potassium (VBG) 3.34 mmol/L (3.70-5.30); Sodium 132 mmol/L (133-146)
[2025-07-11 11:03] LABS: Hematocrit 31.7 % (36.0-47.0); Hemoglobin 9.7 g/dL (12.0-16.0); Mean Corpuscular Hemoglobin 27.5 pg (27.0-31.0); Mean Corpuscular Volume 89.8 fL (78.0-98.0); Platelet Count 152 10x3/uL (130-400); Red Blood Cell (RBC) Count 3.53 mill/uL (4.20-5.40); White Blood Cell (WBC) Count 26.55 10x3/uL (4.8-10.8)
[2025-07-11 11:11] LABS: INR-International Normal Ratio 1.4; Prothrombin Time 17.7 sec (12.0-14.7)
[2025-07-11 11:12] LABS: PTT 37.3 sec (22.9-36.1)
[2025-07-11 11:14] LABS: Bacteria/HPF 4+ HPF (None Seen); CAUTI Indications for Culture Fever or rigors; Glucose, Urine (Dipstick) Normal (Negative); Leukocyte 500 Leu/uL (Negative); Protein, Urine (Dipstick) 200 mg/dL (Neg-Trace); Specific Gravity, Urine 1.016 (1.002-1.036); WBC/HPF Greater than 50 HPF (0-3)
[2025-07-11] MEDS ORDERED: cefTRIAXone (ROCEPHIN) 1 GM VIAL ONE (11:14)
[2025-07-11 11:19] LABS: Urine Culture Reflex Yes Yes
[2025-07-11] MEDS ORDERED: Azithromycin 500 MG VIAL ONE (11:26)
[2025-07-11 11:27] LABS: ALT (SGPT) 11 U/L (Less than 34); AST (SGOT) 36 U/L (11-34); Albumin 2.8 g/dL (3.1-4.5); Alkaline Phosphatase 107 U/L (40-110); Anion Gap 21 mmol/L (10-20); BUN (Urea Nitrogen) 22 mg/dL (9.8-20.1); Bilirubin, Total 1.2 mg/dL (0.3-1.2); Calc. Creatinine Clearance 0 mL/min (70-130); Calcium 8.2 mg/dL (7.8-10.44); Carbon Dioxide 26 mmol/L (23-31); Chloride 90 mmol/L (98-107); Globulin 3.1 g/dL (2.4-3.5); Glucose 159 mg/dL (83-110); Potassium 3.4 mmol/L (3.5-5.1); Sodium 134 mmol/L (136-145)
[2025-07-11 11:53] LABS: Anisocytosis MARKED = >30 cells HPF (0-5); Macrocytosis MODERATE=16-30 cells HPF (0-5); Ovalocytes SLIGHT = 2-5 cells HPF (0-1); Platelet Adequacy Comment Platelets Decreased
[2025-07-11] MEDS ORDERED: Ondansetron PF 4 MG/2 ML Vial IVP PRN (13:37)
[2025-07-11] MEDS: Famotidine/PF 20 mg/2ml Vial SLOW IVP SCH (21:14)
[2025-07-11] MEDS: clonazePAM 1 MG TAB PO SCH (21:15)
[2025-07-11] MEDS: Famotidine 20 MG TAB PO SCH (21:15)
[2025-07-12 03:26] LABS: #Basophils 0.04 10x3/uL (0.0-0.2); #Eosinophils Less than 0.03 10x3/uL (0.0-0.7); #Monocytes 1.75 10x3/uL (0.11-0.59); #Neutrophils 20.72 10x3/uL (1.40-6.50); %Basophils 0.2 % (0.0-1.0); %Eosinophils 0.0 % (0.0-10.0); %Lymphocytes 3.8 % (21.0-51.0); %Monocytes 7.4 % (0.0-10.0); %Neutrophils 87.9 % (42.0-75.0); Hematocrit 29.3 % (36.0-47.0); Hemoglobin 9.2 g/dL (12.0-16.0); Mean Corpuscular Hemoglobin 28.4 pg (27.0-31.0); Mean Corpuscular Volume 90.4 fL (78.0-98.0); Platelet Count 148 10x3/uL (130-400); Red Blood Cell (RBC) Count 3.24 mill/uL (4.20-5.40); White Blood Cell (WBC) Count 23.56 10x3/uL (4.8-10.8)
[2025-07-12 03:59] LABS: ALT (SGPT) 12 U/L (Less than 34); AST (SGOT) 62 U/L (11-34); Albumin 2.7 g/dL (3.1-4.5); Alkaline Phosphatase 105 U/L (40-110); Anion Gap 19 mmol/L (10-20); BUN (Urea Nitrogen) 30 mg/dL (9.8-20.1); Bilirubin, Total 1.0 mg/dL (0.3-1.2); Calc. Creatinine Clearance 30 mL/min (70-130); Calcium 8.3 mg/dL (7.8-10.44); Carbon Dioxide 28 mmol/L (23-31); Chloride 95 mmol/L (98-107); Globulin 3.0 g/dL (2.4-3.5); Glucose 91 mg/dL (83-110); Potassium 4.0 mmol/L (3.5-5.1); Sodium 138 mmol/L (136-145)
[2025-07-12] MEDS: Pantoprazole 40 MG DR.TAB PO SCH (08:48)
[2025-07-12] MEDS: Ezetimibe 10 MG TAB PO SCH (08:48)
[2025-07-12] MEDS: Mupirocin 1 GM TUBE NASAL DECOLONIZATION NASAL SCH (10:27)
[2025-07-12] MEDS: cefTRIAXone\\ROCEPHIN 1 GM in Sodium Chloride 0.9% 100 ML IVPB SCH (10:28)
[2025-07-12] MEDS: Acetaminophen 325 MG TAB PO PRN (12:08)
[2025-07-12] MEDS ORDERED: oxyCODONE 5 MG TAB PO PRN (12:21)
[2025-07-12] MEDS: Norepinephrine 8 MG/0.9% NS 250 ML IVPB SCH (20:14)
[2025-07-13 04:50] LABS: Hematocrit 27.4 % (36.0-47.0); Hemoglobin 8.9 g/dL (12.0-16.0); Mean Corpuscular Hemoglobin 28.5 pg (27.0-31.0); Mean Corpuscular Volume 87.8 fL (78.0-98.0); Platelet Count 126 10x3/uL (130-400); Red Blood Cell (RBC) Count 3.12 mill/uL (4.20-5.40); White Blood Cell (WBC) Count 8.20 10x3/uL (4.8-10.8)
[2025-07-13 04:58] LABS: Anion Gap 16 mmol/L (10-20); BUN (Urea Nitrogen) 35 mg/dL (9.8-20.1); Calc. Creatinine Clearance 30 mL/min (70-130); Calcium 8.5 mg/dL (7.8-10.44); Carbon Dioxide 30 mmol/L (23-31); Chloride 94 mmol/L (98-107); Glucose 91 mg/dL (83-110); Potassium 3.8 mmol/L (3.5-5.1); Sodium 136 mmol/L (136-145)
[2025-07-13 05:32] VITALS: BMI 36.1
[2025-07-13] MEDS: cefTRIAXone\\ROCEPHIN 2 GM in Sodium Chloride 0.9% 100 ML IVPB SCH (10:33)
[2025-07-13] MEDS: FLU (Fluad Triv) 25-26 (65UP)PF 45 MCG/0.5 ML Syringe IM ONE (17:22)
[2025-07-13] MEDS: PNEUMOC 20-VAL CONJ-DIP CRM/PF 0.5 ML SYRINGE IM ONE (17:22)
[2025-07-14 04:58] LABS: #Basophils Less than 0.03 10x3/uL (0.0-0.2); #Eosinophils 0.13 10x3/uL (0.0-0.7); #Monocytes 1.03 10x3/uL (0.11-0.59); #Neutrophils 4.30 10x3/uL (1.40-6.50); %Basophils 0.3 % (0.0-1.0); %Eosinophils 2.1 % (0.0-10.0); %Lymphocytes 12.7 % (21.0-51.0); %Monocytes 16.3 % (0.0-10.0); %Neutrophils 68.1 % (42.0-75.0); Hematocrit 28.2 % (36.0-47.0); Hemoglobin 8.7 g/dL (12.0-16.0); Mean Corpuscular Hemoglobin 27.9 pg (27.0-31.0); Mean Corpuscular Volume 90.4 fL (78.0-98.0); Platelet Count 130 10x3/uL (130-400); Red Blood Cell (RBC) Count 3.12 mill/uL (4.20-5.40); White Blood Cell (WBC) Count 6.31 10x3/uL (4.8-10.8)
[2025-07-14 05:14] LABS: Anion Gap 15 mmol/L (10-20); BUN (Urea Nitrogen) 36 mg/dL (9.8-20.1); Calc. Creatinine Clearance 34 mL/min (70-130); Calcium 8.5 mg/dL (7.8-10.44); Carbon Dioxide 29 mmol/L (23-31); Chloride 96 mmol/L (98-107); Glucose 96 mg/dL (83-110); Potassium 3.5 mmol/L (3.5-5.1); Sodium 136 mmol/L (136-145)
[2025-07-15 03:24] LABS: #Basophils Less than 0.03 10x3/uL (0.0-0.2); #Eosinophils 0.23 10x3/uL (0.0-0.7); #Monocytes 1.04 10x3/uL (0.11-0.59); #Neutrophils 4.13 10x3/uL (1.40-6.50); %Basophils 0.2 % (0.0-1.0); %Eosinophils 3.5 % (0.0-10.0); %Lymphocytes 16.5 % (21.0-51.0); %Monocytes 16.0 % (0.0-10.0); %Neutrophils 63.5 % (42.0-75.0); Hematocrit 29.4 % (36.0-47.0); Hemoglobin 9.1 g/dL (12.0-16.0); Mean Corpuscular Hemoglobin 28.0 pg (27.0-31.0); Mean Corpuscular Volume 90.5 fL (78.0-98.0); Platelet Count 133 10x3/uL (130-400); Red Blood Cell (RBC) Count 3.25 mill/uL (4.20-5.40); White Blood Cell (WBC) Count 6.50 10x3/uL (4.8-10.8)
[2025-07-15 03:37] LABS: Anion Gap 14 mmol/L (10-20); BUN (Urea Nitrogen) 30 mg/dL (9.8-20.1); Calc. Creatinine Clearance 38 mL/min (70-130); Calcium 8.6 mg/dL (7.8-10.44); Carbon Dioxide 29 mmol/L (23-31); Chloride 97 mmol/L (98-107); Glucose 109 mg/dL (83-110); Potassium 3.5 mmol/L (3.5-5.1); Sodium 136 mmol/L (136-145)
[2025-07-15 04:12] LABS: Magnesium 1.7 mg/dL (1.6-2.6)
[2025-07-15] MEDS: Methocarbamol 500 MG TAB PO PRN (20:20)
[2025-07-16 10:52] VITALS: BMI 35.9
[2025-07-19] MEDS: Losartan 25 MG TAB PO SCH (08:49)
[2025-07-19] MEDS: Gabapentin 300 MG CAP PO SCH (08:50)
[2025-07-19] MEDS: Furosemide 40 MG TAB PO SCH (08:51)
[2025-07-19] MEDS: Mometasone 200 MCG/Formoterol 5 MCG 120 PUFF INHALER INH SCH (18:59)
[2025-07-20 11:35] VITALS: BP 152/68; TEMP 97.6
== END 2025-07-20 15:32 | DRG 698 ==
LOC: ERS 10:28 → CCU 13:08 → MSONC 07-15 10:53 → SURG B 07-19 12:07
PROVIDERS: ADMIT Internal Medicine; ATTEND Internal Medicine
PROC: 06HY33Z Insertion of Infusion Device into Lower Vein, Percutaneous Approach (ICD-10-PCS; principal; 2025-07-11)
PROC: 3E04329 Introduction of Other Anti-infective into Central Vein, Percutaneous Approach (ICD-10-PCS; 2025-07-12)
PROC: 3E043XZ Introduction of Vasopressor into Central Vein, Percutaneous Approach (ICD-10-PCS; 2025-07-12)
DX: T83.511A Infection and inflammatory reaction due to indwelling urethral catheter, initial encounter (principal); A41.50 Gram-negative sepsis, unspecified; I21.A1 Myocardial infarction type 2; R65.20 Severe sepsis without septic shock; A41.51 Sepsis due to Escherichia coli [E. coli]; I13.0 Hypertensive heart and chronic kidney disease with heart failure and stage 1 through stage 4 chronic kidney disease, or unspecified chronic kidney disease; I50.32 Chronic diastolic (congestive) heart failure; N17.9 Acute kidney failure, unspecified; J90 Pleural effusion, not elsewhere classified; J96.11 Chronic respiratory failure with hypoxia; I27.20 Pulmonary hypertension, unspecified; N18.30 Chronic kidney disease, stage 3 unspecified; I25.10 Atherosclerotic heart disease of native coronary artery without angina pectoris; Z95.5 Presence of coronary angioplasty implant and graft; Z87.81 Personal history of (healed) traumatic fracture; K59.00 Constipation, unspecified; Z88.1 Allergy status to other antibiotic agents; Z88.8 Allergy status to other drugs, medicaments and biological substances; I48.91 Unspecified atrial fibrillation; Z90.49 Acquired absence of other specified parts of digestive tract; Z90.710 Acquired absence of both cervix and uterus; Z98.51 Tubal ligation status; Z98.890 Other specified postprocedural states; R33.9 Retention of urine, unspecified; Z95.810 Presence of automatic (implantable) cardiac defibrillator; E87.6 Hypokalemia; D63.1 Anemia in chronic kidney disease; Y84.6 Urinary catheterization as the cause of abnormal reaction of the patient, or of later complication, without mention of misadventure at the time of the procedure; Z79.01 Long term (current) use of anticoagulants; Z99.81 Dependence on supplemental oxygen; I49.5 Sick sinus syndrome; Z79.4 Long term (current) use of insulin; Z79.899 Other long term (current) drug therapy; F41.9 Anxiety disorder, unspecified
CPT/HCPCS: 36415; 36556; 71045; 80048; 80053; 81001; 82805; 83605; 83735; 83880; 84439; 84443; 84484; 85025; 85027; 85610; 85730; 87040; 87077; 87086; 87186; 87428; 93005; 94664; 94760; 96365; 96366; 96368; 97139; J0456; J0696; J7050

== ENCOUNTER 2025-08-10 14:05 | Outpatient (CLI) | payer OTHER | END 2025-08-10 14:06 | disposition home or self-care (01) | LOC: CT 14:05 | PROVIDERS: ATTEND Neurological Surgery | DX: S12.100D Unspecified displaced fracture of second cervical vertebra, subsequent encounter for fracture with routine healing (principal) | CPT/HCPCS: 72125 ==